=== PATIENT | male | born 1965 | race Caucasian/White ===

== ENCOUNTER 2023-08-19 13:33 | Outpatient (AMB) | payer OTHER, SELFPAY ==
--- NOTE | 2023-08-19 13:35 | MHC.PC.OV ---
Vital Signs 08/19/23 13:38 Height 5 ft 7.72 in Weight 280 lb BMI 42.9 BP 140/90 H Blood Pressure Location Lt brachial Position Sitting Pulse 77 Pulse Source Pulse Oximeter Pulse Oximetry (%) 99 Oxygen Delivery Method Room Air Intake Visit Reasons: New patient-req physical/discuss cardio referral Intake Note: Patient is a new patient here to establish care for HTN and Cardiolody referral. Pt moved from [place] to [facility] back in April and have not seen a PCP in more than 4-5 years. Medical records have been requested. Insert Operator Required: No Accompanied by: Spouse Allergies No Known Allergies Allergy (Verified 08/19/23 13:55) Medication List - Last Reviewed 08/19/23 by ELLIE Rothman furosemide 40 mg PO DAILY lisinopril 20 mg PO DAILY 90 days metoprolol succinate ER 25 mg PO DAILY 90 days rosuvastatin (Crestor) 20 mg PO DAILY sildenafil 100 mg PO DAILY 7 days Tobacco use date assessed: 08/19/23 Dental Screening Dental Screen Date: 08/19/23 Did you have a dental visit in the last 12 months?: No Did you have a dental problem in the last 6 months where you did not have access to dental care?: No Was dental information given to patient?: Yes HPI New patient-req physical/discuss cardio referral HPI Details Patient is a 57-year-old male here today for new patient visit. Patient has a past medical history significant for obesity, Congestive heart failure, hypertension, history of alcohol use disorder(in remission). Recently moved back from [place] and was seeing a professor of art while down there. No records in documents as of yet. He did have a hospitalization in 2020 ([place] which was found to have pneumonia, COVID and found to be in heart failure. At that time he reports a dual pacemaker and D fib was placed while in [place]. He would like to reestablish care with Cardiology here in [place]. Continues on cardiac meds like metoprolol , furosemide and lisinopril and has been doing well from cardiovascular standpoint. .. He also does report having history elevated cholesterol and impaired fasting blood sugars. Will recheck labs and treat accordingly. Vaccines: Need PCV and flu vaccine today, reports he a has gotten tetanus, he is considering the shingles vaccine Concern--> has been trouble with getting an erection. He would like to try medication PFSH Family History (Updated 08/19/23 @ 14:05 by Tushar Soria PA-C) Mother CHF (congestive heart failure) Father CHF (congestive heart failure) Sister HTN (hypertension) Social History Housing: House Alcohol intake: former Year quit: 2004 Patient Tobacco Use Status: Never used Tobacco Tobacco use type: Smokeless Tobacco (never) e-Cigarette/Vaping Use: Never Used Substance Use Type: Crack/Cocaine and Marijuana Substance Use Type Other:: quit more than 16 years ago service: No Current occupational status: employed Current occupation: [employer] Current occupational exposures/hazards: No Cognitive needs: No Hearing needs: No Vision needs: No Questionnaire PHQ-9 Over the last 2 weeks, how often have you been bothered by any of the following problems? 1. Little interest or pleasure in doing things: not at all 2. Feeling down, depressed, or hopeless: not at all 3. Trouble falling or staying asleep, or sleeping too much: not at all 4. Feeling tired or having little energy: not at all 5. Poor appetite or overeating: not at all 6. Feeling bad about yourself - or that you are a failure or have let yourself or your family down: not at all 7. Trouble concentrating on things, such as reading the newspaper or watching television: not at all 8. Moving or speaking so slowly that other people could have noticed. Or the opposite - being so fidgety or restless that you have been moving around a lot more than usual: not at all 9. Thoughts that you would be better off or of hurting yourself in some way: not at all Total score: 0 Depression Screening Interpretation: Negative Depression Screening Done: Yes [id number] - PHQ-9 Billing: Yes Source: Developed by Drs. Sheldon Asher, Tayla Rosado, Presley Gallagher and colleagues, with an educational sawyer from [employer] Thrive Questionnaire Date Thrive assessed: 08/19/23 I am a: Patient What is your living situation today?: I have a steady place to live Within the past 12 months, did the food you bought not last and you didn't have the money to get more?: Never true Within the past 12 months, did you worry whether your food would run out before you got money to buy more?: Never true Do you have trouble paying for medicines?: No Do you have trouble getting transportation to medical appointments?: No Do you have trouble paying your heating and electricity bill?: No Do you have trouble taking care of your child, family member or friend?: No Do you have trouble with day-to-day activities such as bathing, preparing meals, shopping, managing finances, etc.?: No Are you currently unemployed and looking for a job?: No Are you interested in more education?: No Please select the resources that you would like help with: None Currently or been in a relationship where the following occur: no concerns reported AUDIT C Alcohol Use Questionnaire (AUDIT-C) 1. How often do you have a drink containing alcohol?: Never 3. How often do you have six or more drinks on one occasion?: Never Total Score: 0 ALYSSA-7 AMB Questionnaire ALYSSA-7 Date ALYSSA - 7 assessed: 08/19/23 Feeling nervous, anxious, or on edge: 0 = Not at all Not being able to stop or control worryin = Not at all Worrying too much about different things: 0 = Not at all Trouble relaxin = Not at all Being so restless that it is hard to sit still: 0 = Not at all Becoming easily annoyed or irritable: 0 = Not at all Feeling afraid as if something awful might happen: 0 = Not at all Total ALYSSA-7 score (0-4 normal; 5-9 mild; 10-14 moderate; 15-21 severe): 0 Source: Developed by Drs. Sheldon Asher, Tayla Rosado, Presley Gallagher and colleagues, with an educational sawyer from [employer] ALYSSA-7 Assessment Billing ALYSSA-7 Assessment Tool: ALYSSA-7 Assessment 01031 Review of Systems Const Denies headache(s) Eyes Denies loss of vision ENT Denies vertigo, Denies dizziness, Denies headache(s) and Denies sore throat Card Denies chest pain, Denies leg edema and Denies lightheadedness Resp Denies cough, Denies hemoptysis and Denies wheezing GI Denies abdominal pain, Denies melena, Denies constipation, Denies diarrhea and Denies vomiting Denies dysuria, Denies urinary frequency and Denies urinary urgency Musc Denies arthralgias, Denies joint swelling, Denies numbness and Denies tingling Neuro Denies Abnormal speech present, Denies behavioral changes, Denies vertigo, Denies dizziness, Denies headache(s), Denies loss of vision, Denies memory loss, Denies numbness and Denies tingling Psych Denies anxiety, Denies behavioral changes, Denies depression, Denies memory loss and Denies panic attacks Eyal/Lymph Denies easy bleeding and Denies easy bruising Aller/Immun Denies wheezing Physical exam (Primary Care) Vital Signs: Last Vital Signs Pulse 77 08/19/23 13:38 BP 140/90 H 08/19/23 13:38 Pulse Ox 99 08/19/23 13:38 Oxygen Delivery Method Room Air 08/19/23 13:38 BMI result Body Mass Index 42.9 BMI Assessment/Plan discussion: High Tobacco/Smoking Status: Tobacco use Status Tobacco use date assessed 08/19/23 08/19/23 13:45 Patient Tobacco Use Status Never used Tobacco 08/19/23 14:05 Tobacco use type Smokeless Tobacco (never) 08/19/23 15:41 e-Cigarette/Vaping Use Never Used 08/19/23 14:05 PHQ-9: PHQ-9 Score PHQ-9: Total score 0 08/19/23 15:35 Depression Screening Interpretation: Negative Thrive Assessment: Date of Thrive Assessment Date Thrive assessed 08/19/23 08/19/23 13:45 Currently or been in a relationship where the following occur: no concerns reported Const Other: Morbidly obese General: no acute distress, alert and awake Nutritional Appearance: well nourished Orientation/consciousness: oriented to person, oriented to place and oriented to time HENMT Ears: TM's normal bilaterally General nose exam: Normal nasal mucous membranes and turbinates present Eyes Conjunctivae: conjunctivae normal Sclerae: sclerae normal Pupils: Equal, round and reactive pupils present Neck Neck: Yes no lymphadenopathy and Yes no JVD Thyroid: Thyroid normal Carotids: no bruits Resp Effort & Inspection: normal respiratory effort and not tachypneic Auscultation: no crackles, no rales, no rhonchi and no wheezes Cardio Rate: regular rate Rhythm: regular rhythm Heart sounds: no murmurs and normal S1 and S2 GI Palpation (GI): Soft to palpation, nontender, no hepatomegaly and no splenomegaly Auscultation: normal bowel sounds Skin General skin exam: no rashes or lesions noted and dry skin Neuro General: oriented to person, oriented to place and oriented to time Cranial nerves: Yes Equal, round and reactive pupils present Speech: No Abnormal speech present Gait exam (Neuro): Normal gait present Motor exam (neuro): no tremor noted Extrem Right upper extremity: full ROM Left upper extremity: full ROM Right lower extremity: full ROM; no edema Left lower extremity: full ROM; no edema Psych Mental Status: mental status grossly normal Speech and movement: Normal speech and movement present Affect: normal affect Attitude: cooperative Thought process: Normal thought process present Office Procedures Flu Questionnaire Does the patient have a severe egg allergy?: No Does the patient have severe life threatening allergies?: No Does the patient have a fever or illness today?: No Has the patient ever had Guillain-[place] Syndrome?: No Has the patient ever had any past reaction to a flu shot?: No Immunizations flu vacc [id number] 6mos up(PF) 60 mcg(15 mcgx4)/0.5 mL IM syringe Performing Provider: Tushar Soria PA-C Performing Location: [facility] [place] [facility] Administered by: ELLIE Rothman on 08/19/23 14:49 Dose Route Admin Location Dispensed Lot Number Expiration Date [employer] Member 0.5 mL IM Right Deltoid 0.5 mL [id number] 03/29/24 52919-975-22 [employer] VIS Given Date VIS Provided VIS Publication Date 08/19/23 Single Vaccine 21 Eligibility Eligibility Date Funding Source Not VFC Eligible 08/19/23 Private pneumoc 20-desi conj-dip cr(PF) 0.5 mL IM syringe Performing Provider: Tushar Soria PA-C Performing Location: [facility] [place] [facility] Administered by: ELLIE Rothman on 08/19/23 14:49 Dose Route Admin Location Dispensed Lot Number Expiration Date [employer] Member 0.5 mL IM Left Deltoid 0.5 mL [id number] 06/29/24 2938-4159-75 [employer] VIS Given Date VIS Provided VIS Publication Date 08/19/23 Single Vaccine 21 Eligibility Eligibility Date Funding Source Not VFC Eligible 08/19/23 Private Assessment and Plan Assessment & Plan (1) CHF (congestive heart failure), NYHA class III: Code(s): I50.9 - Heart failure, unspecified Qualifiers: Congestive heart failure chronicity: chronic Congestive heart failure type: diastolic Qualified Code(s): I50.32 - Chronic diastolic (congestive) heart failure Plan: Was followed by professor of art while living in [place]. Would like to reestablish care with Cardiology here in [place].. Seems to be euvolemic on physical exam today. He has a maintenance dose Lasix 20 mg daily. Did continue him on this dose at this time and refer to cardiology for further evaluation. Of note does have AD fib pacemaker in place. (2) HTN (hypertension): Code(s): I10 - Essential (primary) hypertension Qualifiers: Hypertension type: primary hypertension Qualified Code(s): I10 - Essential (primary) hypertension Plan: Blood pressure today slightly elevated. He reports he has been out of medication for little while due to [place]. Will restart his lisinopril at a higher dose 20 mg. Advised to start monitoring his blood pressure and weights at home. Goal blood pressure to be below 140/90 (3) Obese: Code(s): E66.9 - Obesity, unspecified Qualifiers: Body mass index: BMI 40.0-44.9 Obesity classification: adult class 3 (BMI >= 40) Obesity type: due to excess calories Serious obesity comorbidity presence: with serious comorbidity Qualified Code(s): E66.01 - Morbid (severe) obesity due to excess calories; Z68.41 - Body mass index [BMI] 40.0-44.9, adult Plan: Patient does understand his BMI is well over 40 will try to work on being more physically active and adapting to better eating habits to reduce his weight. (4) Cardiac defibrillator in place: Code(s): Z95.810 - Presence of automatic (implantable) cardiac defibrillator Plan: As above. He denies any discharges since having his implantable defibrillator. (5) Impaired glucose metabolism: Code(s): R73.09 - Other abnormal glucose Plan: Patient does report history of impaired glucose metabolism. Will check an A1c to evaluate for diabetes. (6) S/P placement of cardiac pacemaker: Code(s): Z95.0 - Presence of cardiac pacemaker Plan: As above Orders: Orders Comprehensive [place]. Panel Fast 08/19/23 I50.32 - Chronic diastolic (congestive) heart failure Hemoglobin A1c 08/19/23 R73.09 - Other abnormal glucose Influenza [id number] Immunization 08/19/23 Z23 - Encounter for immunization Microalbumin, Random (w Creat) 08/19/23 I10 - Essential (primary) hypertension Lipid Panel 08/19/23 I50.32 - Chronic diastolic (congestive) heart failure Prostate Specific Antigen Scr 08/19/23 I50.32 - Chronic diastolic (congestive) heart failure, Z12.5 - Encounter for screening for malignant neoplasm of prostate Complete Blood Count no Diff 08/19/23 I50.32 - Chronic diastolic (congestive) heart failure Pneumococcal 20 Immunization 08/19/23 I50.32 - Chronic diastolic (congestive) heart failure, Z23 - Encounter for immunization Referrals Cardiology Referral I50.9 - Heart failure, unspecified, Z95.810 - Presence of automatic (implantable) cardiac defibrillator Medications: New metoprolol succinate ER 25 mg PO DAILY 90 days 90 tabs 1RF I50.32 - Chronic diastolic (congestive) heart failure lisinopril 20 mg PO DAILY 90 days 90 tabs 1RF I10 - Essential (primary) hypertension furosemide 20 mg PO DAILY 90 days 90 tabs 1RF I50.32 - Chronic diastolic (congestive) heart failure sildenafil 100 mg PO DAILY 7 days 7 tabs 0RF N52.9 - Male erectile dysfunction, unspecified Coding Level of Care Code New Pt Level 4 (56267) Diagnoses Chronic diastolic congestive heart failure, NYHA class 3 I50.32 Congestive heart failure chronicity: chronic Congestive heart failure type: diastolic Primary hypertension I10 Hypertension type: primary hypertension Class 3 severe obesity due to excess calories with serious comorbidity and body mass index (BMI) of 40.0 to 44.9 in adult E66.01; Z68.41 Body mass index: BMI 40.0-44.9 Obesity classification: adult class 3 (BMI >= 40) Obesity type: due to excess calories Serious obesity comorbidity presence: with serious comorbidity Cardiac defibrillator in place Z95.810 Impaired glucose metabolism R73.09 S/P placement of cardiac pacemaker Z95.0 Additional Codes ALYSSA-7 Assessment Billing - ALYSSA-7 Assessment Tool: ALYSSA-7 Assessment [id number] ([id number])
[2023-08-19 13:38] VITALS: BP 140/90; PULSE 77; O2SAT 99; BMI 42.9
== END 2023-08-19 14:38 | disposition home or self-care (01) ==
PROVIDERS: PCP Physician Assistant; Visit Provider Physician Assistant
DX: Z23 Encounter for immunization (principal)
CPT/HCPCS: 90471; 90472; 90677; 90686; 99204

== ENCOUNTER 2023-08-23 10:56 | Outpatient (REF) | payer OTHER, SELFPAY ==
[2023-08-23 11:37] LABS: Hematocrit 49.7 % (42.0-52.0); Hemoglobin 16.3 g/dl (14.0-18.0); Mean Corpuscular HGB Conc 32.8 g/dl (31.0-36.0); Mean Corpuscular Hemoglobin 29.3 pg (27.0-33.0); Mean Corpuscular Volume 89.4 fL (80.0-98.0); Mean Platelet Volume 10.9 fL (9.4-12.4); Platelet Count 255 X10*3/uL (160-400); Red Blood Count 5.56 X10*6/uL (4.60-5.80); Red Cell Distribution Width 13.4 % (11.0-16.0); White Blood Count 8.3 X10*3/uL (4.8-10.8)
[2023-08-23 12:06] LABS: Creatinine Urine 158.64 mg/dL; Microalbum/Creatinine Ratio Ur 6.3 ug/mg cr (<30)
[2023-08-23 12:08] LABS: Alanine Aminotransferase 28 U/L (0-40); Albumin Level 4.1 g/dL (3.5-5.0); Alkaline Phosphatase 67 U/L (39-117); Anion Gap 11 (12-20); Aspartate Amino Transferase 23 U/L (5-37); Bilirubin Total 0.4 mg/dL (0.0-1.0); Blood Urea Nitrogen 24 mg/dL (9-16); Carbon Dioxide 24 mmol/L (22-29); Chloride 110 mmol/L (96-108); Cholesterol 180 mg/dL (<200); Estimated Glomerular Filt Rate > 60; Glucose Fasting 101 mg/dL (60-99); HDL Cholesterol 41 mg/dL (>40); LDL Cholesterol Calculated 114 mg/dL (<100); Potassium 4.4 mmol/L (3.3-5.1); Sodium 141 mmol/L (135-145); Total Protein 7.1 g/dL (6.5-8.0); Triglycerides 128 mg/dL (<150)
[2023-08-23 13:38] LABS: Estimated Average Glucose 120 mg/dL; Hemoglobin A1c % 5.8 % (<6.0)
== END 2023-08-23 10:57 | disposition home or self-care (01) ==
LOC: HO.LAB 10:56
PROVIDERS: PCP Physician Assistant; Visit Provider Physician Assistant
DX: Z12.5 Encounter for screening for malignant neoplasm of prostate (principal); I11.0 Hypertensive heart disease with heart failure; I50.32 Chronic diastolic (congestive) heart failure; R73.09 Other abnormal glucose
CPT/HCPCS: 36415; 80053; 80061; 82043; 82570; 83036; 84153; 85027

== ENCOUNTER 2023-11-15 09:57 | Outpatient (AMB) | payer BC, SELFPAY ==
[2023-11-15 09:58] VITALS: BP 124/80; PULSE 76; BMI 42.3
--- NOTE | 2023-11-15 09:58 | MHC.OFFVIS ---
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 device in place Intake Note: New patient hx heart failure [place] pacer placed in [place] feeling good Supervisor Special Services Required: No Allergies No Known Allergies Allergy (Verified 08/19/23 13:55) Medication List - Last Reconciled 11/15/23 by New Westfall MD furosemide 40 mg PO DAILY lisinopril 20 mg PO DAILY 90 days metoprolol succinate ER 25 mg PO DAILY 90 days rosuvastatin (Crestor) 20 mg PO DAILY 90 days sildenafil 100 mg PO DAILY 7 days HPI HPI Comments History of Present Illness Details Thank you for referring Phillip in cardiology consultation today for management of congestive heart failure. He has a pleasant 58-year-old male who has by history of heart failure with reduced ejection fraction secondary to nonischemic cardiomyopathy, diagnosed in October of 2021. He said he had moved to [place] and had not seen a physician and run out of his medication for about a year and half. He then had COVID and subsequently was admitted with pneumonia. Following that he started noticing symptoms exertional shortness of breath which pretty limiting. At that time he had a workup done and was diagnosed with congestive heart failure related to severe LV systolic dysfunction which was subsequently diagnosed to be nonischemic cardiomyopathy with coronary angiogram showing no significant coronary artery disease. He was then managed medically. Subsequently he had persistent LV systolic dysfunction underwent a dual-chamber defibrillator placement, [place] in February of 2022. Since then he has been on neurohormonal modulation with lisinopril as well as metoprolol and has been treated with furosemide. He said over the last couple years he has been doing well and he has had no recurrent hospitalization related to heart failure. 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 He has NYHA class 1 symptoms. He denies any orthopnea, PND, leg edema, abdominal distension. He has been trying to lose weight. He takes his medications religiously. However he says he has not seen a grit blaster since he is moved up to [place] and for about a year he has not had his defibrillator check. Not sure as to who is performing remote monitoring on him at this point in time. He takes his medications religiously. Does complain of daytime somnolence and nocturnal snoring. Has never had a sleep study done in the past. He denies any exertional chest pain, palpitations, lightheadedness, syncope. [facility] Medical History Nonischemic cardiomyopathy Heart failure with reduced ejection fraction Cardiac defibrillator in place Family History Mother CHF (congestive heart failure) Father CHF (congestive heart failure) Sister HTN (hypertension) Social History Housing: House Alcohol intake: former Year quit: 2004 Patient Tobacco Use Status: Never used Tobacco Tobacco use type: Smokeless Tobacco e-Cigarette/Vaping Use: Never Used Substance Use Type: Crack/Cocaine and Marijuana service: No Current occupational status: employed Current occupation: [employer] Current occupational exposures/hazards: No Cognitive needs: No Hearing needs: No Vision needs: No Review of Systems Const Denies chills, Denies fatigue, Denies fever(s), Denies frequent falls, Denies weakness, Denies weight gain and Denies weight loss ENT Denies dizziness Card Denies chest pain, Denies leg edema, Denies lightheadedness, Denies palpitations, Denies dyspnea, Denies dyspnea on exertion, Denies orthopnea and Denies other (loss of consciousness) Resp Denies cough, Denies dyspnea and Denies dyspnea on exertion GI Denies hematochezia and Denies change in stool character Musc Denies abnormal gait, Denies muscle weakness, Denies numbness, Denies radiating pain into limb and Denies tingling Neuro Denies abnormal gait, Denies dizziness, Denies frequent falls, Denies numbness, Denies tingling and Denies weakness Endo Denies fatigue and Denies palpitations Physical Exam Vital Signs: Last Vital Signs Pulse 76 11/15/23 09:58 BP 124/80 11/15/23 09:58 BMI result Body Mass Index 42.3 Const General: cooperative, comfortable, no acute distress, well developed, alert, awake and Physically active Nutritional Appearance: obese Orientation/consciousness: patient oriented x3 Limitations: no limitations HEENT Head: Yes normocephalic and Yes atraumatic Neck Neck: Yes trachea midline, Yes supple and Yes no JVD Resp Effort & Inspection: normal respiratory effort Auscultation: clear to auscultation bilaterally Cardio Jugular venous distension: no JVD Palpation: abnormal PMI displaced PMI Rate: regular rate Rhythm: regular rhythm Heart sounds: S1 normal heart sound present, S2 normal heart sound present, no click, no gallops, no murmurs and no rubs GI Auscultation: normal bowel sounds Skin General skin exam: no rashes or lesions noted Neuro General: patient oriented x3 and no focal motor deficits Extrem General: Yes no clubbing, cyanosis or edema Office Procedures Cardiac Device Check Cardiac Device Check Details: Dual-chamber [place] defibrillator in place. Programmed in DDD at 60 beats per minute. Atrial pacing 9.4% time. Few episodes of high ventricular rate noted consistent with either sinus tachycardia or SVT. Atrial pacing thresholds adequate and in our capture mode. RV pacing thresholds adequate and reprogrammed to enhance battery life. Right atrial sensing is excellent. RV sensing is on a low end of normal. Pacing and shock lead impedance is stable. Battery life is excellent. Heart failure markers are stable [id number] Cardiac Device Check, dual lead implantable defibrillator Procedure code (CPT) selection complete EKG Details: EKG shows normal sinus rhythm with LVH with leftward axis 08232-[id number], Complete Assessment & Plan Assessment & Plan (1) Heart failure with reduced ejection fraction: Comment: Diagnose October 2021 Code(s): I50.20 - Unspecified systolic (congestive) heart failure Plan: Patient with prior history of heart failure with reduced ejection fraction secondary to nonischemic cardiomyopathy with last recorded echocardiogram from January of 2022 still showing severe LV systolic dysfunction with dilated LV. He has had no repeat study recently. He is currently on neurohormonal modulation with lisinopril metoprolol and is currently NYHA class 1 symptoms on current diuretic dose. Heart failure has remained stable. Will repeat echocardiogram to assess LV systolic function and size. If he does have persistent LV systolic dysfunction will switch his neurohormonal modulation to Entresto therapy and maximize it and eventually also add Aldactone to his regimen for neurohormonal modulation. This was discussed with him. He should also get a workup for sleep apnea is at risk given his longstanding history of hypertension with cardiomyopathy and daytime somnolence and snoring. This will also changes therapeutic options. Clinically appears to be euvolemic and well compensated and probably does not require this dosing of furosemide. Will follow-up with blood work today and then further guide therapy with diuretics as need be. Heart failure management was discussed. Daily weight monitoring avoidance of salt loading was discussed. He does work heartbeat I encouraged him to participate in regular physical activity and also consider aggressively weight loss program. He said he is motivated about the same. (2) Cardiac defibrillator in place: Comment: [place] dual-chamber ICD in place, February 2022 Code(s): Z95.810 - Presence of automatic (implantable) cardiac defibrillator Plan: Dual-chamber [place] ICD in place for primary prevention. The device is working well. He is having episodes of SVT which appeared more likely related to sinus tachycardia. No change in therapy at this point in time. Will continue monitor remotely and will obtain remote monitoring from his prior grit blaster's office. Will follow up in the clinic in 3 months time, sooner p.r.n.. Thank you for allowing me to partake in his care Orders: Orders B Type Natriuretic Peptide Today I50.32 - Chronic diastolic (congestive) heart failure CA echo transthoracic complete Today I50.32 - Chronic diastolic (congestive) heart failure Basic Metabolic Panel Today I50.32 - Chronic diastolic (congestive) heart failure RT home sleep study Today I50.9 - Heart failure, unspecified, R40.0 - Somnolence Coding Level of Care Code New Pt Level 4 (35342) Diagnoses Heart failure with reduced ejection fraction I50.[address] Z95.810 CPT Codes Cardiac Device Check - Cardiac Device 5: [id number] Cardiac Device Check, dual lead implantable defibrillator ([id number]) EKG - CPT: 33050-Cmzyapconmtyifald, Complete ([id number])
== END 2023-11-15 10:34 | disposition home or self-care (01) ==
PROVIDERS: PCP Physician Assistant; Visit Provider Internal Medicine Cardiovascular Disease
DX: I50.20 Unspecified systolic (congestive) heart failure (principal); Z95.810 Presence of automatic (implantable) cardiac defibrillator
CPT/HCPCS: 93283; 99204

== ENCOUNTER 2023-11-15 09:57 | Outpatient (REF) | payer BC, SELFPAY ==
[2023-11-15 12:17] LABS: Anion Gap 11 (12-20); Blood Urea Nitrogen 21 mg/dL (9-16); Calcium 9.6 mg/dL (8.4-10.2); Carbon Dioxide 22 mmol/L (22-29); Chloride 108 mmol/L (96-108); Estimated Glomerular Filt Rate > 60; Glucose Random 89 mg/dL (60-115); Potassium 4.2 mmol/L (3.3-5.1); Sodium 137 mmol/L (135-145)
[2023-11-15 12:24] LABS: B Type Natriuretic Peptide 49 pg/mL (<100)
== END 2023-11-15 09:58 | disposition home or self-care (01) ==
LOC: HO.LAB 09:57
PROVIDERS: PCP Physician Assistant; Visit Provider Internal Medicine Cardiovascular Disease
DX: I50.32 Chronic diastolic (congestive) heart failure (principal); Z95.810 Presence of automatic (implantable) cardiac defibrillator
CPT/HCPCS: 36415; 80048; 83880; 93005

== ENCOUNTER → 2024-03-18 14:47 | Outpatient (REF) | payer BC, SELFPAY ==
--- NOTE | 2024-03-18 14:51 | CA_ITS ---
Transthoracic Echocardiogram Patient (Last, First, Middle): Favian Carvajal), Gender: Male Date of : 1965 Age: 58 Procedure Date: 03/18/2024 Procedure Type: Transthoracic Echocardiogram Location: OP Height: 175.26 cm Weight: 122.47 kg BSA: 2.35 m2 Heart Rate: 71 bpm BP: 132 / 74 mmHg Mine Surveyor: SB Referring MD: New Westfall MD [employer] Laborer: New Westfall MD Symptoms: I50.32 - Chronic diastolic (congestive) heart failure Study Quality: Adequate w contrast ECG Rhythm: Sinus Conclusions: - 1. Moderately dilated left ventricle with preserved LV ejection fraction of 55-60% 2. Normal cardiac valvular Dopplers 3. Normal RV systolic pressure 4. No gross pericardial effusion Findings Procedure Information Contrast agent, definity, is being given per protocol without apparent complications. Left Ventricle Moderately increased left ventricular cavity size. There is normal left ventricular wall thickness. The left ventricular systolic function is normal. The visually estimated ejection fraction is between 55-60%. Spectral Doppler is indicative of a normal filling pattern. Right Ventricle The right ventricle was not well visualized. There is a pacemaker wire seen in the right ventricle. Atria The left atrium is normal in size. Interatrial shunt cannot be excluded. The right atrium is normal in size. A pacemaker wire is identified in the right atrium. Aortic Valve The aortic valve was not well visualized. There is no aortic valve stenosis. There is no aortic valve regurgitation. Mitral Valve There is mild anterior and posterior mitral leaflet thickening. There is trace mitral valve regurgitation. There is no mitral valve stenosis. Pulmonic Valve The pulmonic valve was not well visualized. Tricuspid Valve Likely normal tricuspid valve structure and function. There is mild tricuspid valve regurgitation. The right ventricular systolic pressure is normal. The right ventricular systolic pressure is 28 mmHg. Normal right atrial pressure. There is no evidence of pulmonary hypertension. Great Vessels The pulmonary artery was not well visualized. There is no dilatation of the ascending aorta measuring 3.30 cm. Venous The inferior vena cava is normal in size and collapses greater than 50% with inspiration. Pericardium/Pleural There is no evidence of pericardial effusion. Prior Study Comparison No prior study available for comparison. Measurements 2D Linear Measurements IVSd: 0.92 0.6-0.9/0.6-1.0 cm LVIDd: 6.21 3.9-5.3/4.2-5.9 cm LVIDd Index: 2.64 2.4-3.2/2.2-3.1 cm/m2 LVIDs: 4.94 2.0-3.6 cm LVPWd: 0.76 0.7-1.1 cm LA Diam: 4.80 2.7-3.8/3.0-4.0 cm LAIDs Index: 2.04 1.5-2.3 cm/m2 LV Mass: 260.98 67-162/88-224 g LV Mass Index: 111.05 43-95/49-115 g/m2 LVOT Diam: 2.30 3.0+(-)1.3 cm 2D Systolic Function EF 4C: 52.90 >55% EF 2C: 57.30 >55% EF BiP: 56.40 >55% Mitral Valve MV Pk E: 0.60 MV PK A: 0.57 MV Decel Time: 206.00 E/A: 1.10 E'Lateral: 11.40 E'Medial: 5.44 E/E' Med: 11.00 E/E' Lat: 5.30 PHT: 60.00 MVA PHT: 3.67 Decel Bureau: 2.91 Aortic Valve AoV Pk Zen: 1.30 AoV Pk Grad: 7.00 JEANETH: 2.53 LVOT LVOT Pk Zen: 0.80 LVOT Mn Zen: 0.61 LVOT VTI: 0.19 LVOT Pk Grad: 3.00 LVOT Mn Grad: 2.00 LVOT Diam: 2.30 LVOT Area: 4.15 Diastolic Function MV Pk E: 0.60 MV Pk A: 0.57 E/A: 1.10 E'Medial: 5.44 E/E' Med: 11.00 E' Laterial: 11.40 E/E' Lat: 5.30 Right Ventricle TAPSE (mm): 20.30 TVS' Zen: 17.40 Tricuspid Valve TR Pk Zen: 2.52 TR Pk Grad: 25.00 RA Press: 3.00 RVSP: 28.00 Great Vessels Aorta Sinus of Valsalva: 3.10 2.0-3.5 cm Ao Asc: 3.30 2.1-3.4 cm Ao Arch: 2.90 Pulmonary Veins Pulm Vein S/D 0.90 Pulmonary Valve PV Pk Zen: 1.04 Peak PV Grad: 4.00 Updated in Other Vendor System with Status of Final New Westfall MD electronically signed on 03/18/2024 4:13:15 PM with status of Final
== END ==
LOC: HO.CARD 14:47
PROVIDERS: PCP Physician Assistant; Visit Provider Internal Medicine Cardiovascular Disease
DX: I50.32 Chronic diastolic (congestive) heart failure (principal); R40.0 Somnolence
CPT/HCPCS: 93306; Q9957

== ENCOUNTER → 2024-03-18 14:51 | Outpatient (BNV) | payer BC, SELFPAY | PROVIDERS: PCP Physician Assistant; Visit Provider Internal Medicine Cardiovascular Disease | DX: I50.32 Chronic diastolic (congestive) heart failure (principal); I36.1 Nonrheumatic tricuspid (valve) insufficiency | CPT/HCPCS: 93306 ==

== ENCOUNTER 2024-04-01 08:43 | Outpatient (AMB) | payer BC, SELFPAY ==
[2024-04-01 08:45] VITALS: BP 128/66; PULSE 67; BMI 41.9
--- NOTE | 2024-04-01 08:45 | A.OFFVIS_ITS ---
Vital Signs 04/01/24 08:45 Height 5 ft 7.7 in Weight 273 lb 5.971 oz BMI 41.9 BP 128/66 Blood Pressure Location Lt brachial Position Sitting Pulse 67 Intake Visit Reasons: 3 month follow-up after echo and sleep study Intake Note: 3mo f/u echo and sleep study. Pt feeling good. Cilnical Scientist Required: No Accompanied by: Self / Same As Patient Allergies No Known Allergies Allergy (Verified 08/19/23 13:55) Medication List - Last Reconciled 04/01/24 by New Westfall MD furosemide 40 mg (2 x 20 mg) PO DAILY lisinopril 20 mg PO DAILY 90 days metoprolol succinate ER 25 mg PO DAILY 90 days rosuvastatin (Crestor) 20 mg PO DAILY 90 days sildenafil 100 mg PO DAILY 7 days HPI Comments Details: Phillip comes for follow-up. He denies any new cardiac symptoms. Echocardiogram in fact shows improved LV ejection fraction to 55-60% but still moderately dilated left ventricle. He continues to have no symptoms of heart failure. 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 Denies any orthopnea, PND, leg edema or signs of volume overload. No palpitations, lightheadedness, syncope, ICD discharge. Denies any clear prolonged irregular heartbeat. Takes all his medications regularly. Recent sleep study showed severe sleep apnea and was recommended CPAP therapy. [facility] Medical History Nonischemic cardiomyopathy Heart failure with reduced ejection fraction Cardiac defibrillator in place Family History Mother CHF (congestive heart failure) Father CHF (congestive heart failure) Sister HTN (hypertension) Social History Housing: House Alcohol intake: former Year quit: 2004 Patient Tobacco Use Status: Never used Tobacco Tobacco use type: Smokeless Tobacco e-Cigarette/Vaping Use: Never Used Substance Use Type: Crack/Cocaine and Marijuana service: No Current occupational status: employed Current occupation: [employer] Current occupational exposures/hazards: No Cognitive needs: No Hearing needs: No Vision needs: No Review of Systems Const Denies chills, Denies fatigue, Denies fever(s), Denies weight gain and Denies weight loss Card Denies chest pain, Denies leg edema, Denies lightheadedness, Denies palpitations, Denies dyspnea on exertion and Denies orthopnea Resp Denies cough and Denies dyspnea on exertion GI Reports melena, Denies hematochezia and Denies change in stool character Musc Denies muscle weakness and Denies radiating pain into limb Endo Denies fatigue and Denies palpitations Physical Exam Vital Signs: Last Vital Signs Pulse 67 04/01/24 08:45 BP 128/66 04/01/24 08:45 BMI result Body Mass Index 41.9 Const General: cooperative, comfortable, no acute distress, well developed, alert, awake and Physically active Nutritional Appearance: obese Orientation/consciousness: patient oriented x3 Limitations: no limitations HEENT Head: Yes normocephalic and Yes atraumatic Neck Neck: Yes trachea midline, Yes supple and Yes no JVD Resp Effort & Inspection: normal respiratory effort Auscultation: clear to auscultation bilaterally Cardio Jugular venous distension: no JVD Palpation: abnormal PMI displaced PMI Rate: regular rate Rhythm: regular rhythm Heart sounds: S1 normal heart sound present, S2 normal heart sound present, no click, no gallops, no murmurs and no rubs GI Auscultation: normal bowel sounds Skin General skin exam: no rashes or lesions noted Neuro General: patient oriented x3 and no focal motor deficits Extrem General: Yes no clubbing, cyanosis or edema Office Procedures Cardiac Device Check Cardiac Device Check Details: Dual-chamber [place] ICD in place. Programmed in DDD at 60 beats per minute. Atrial pacing 12% of time. Few episodes of atrial fibrillation noted overall total burden is less than 24 hours. Atrial ventricular pacing thresholds are a dequate. Atrial ventricular sensing is adequate. Pacing and shock lead impedance is stable. Battery life is at about 7 years [id number] Cardiac Device Check, dual lead implantable defibrillator Procedure code (CPT) selection complete Assessment & Plan Assessment & Plan (1) Heart failure with reduced ejection fraction: Comment: Diagnose October 2021 Code(s): I50.20 - Unspecified systolic (congestive) heart failure Category: Medical Plan: Heart failure with reduced ejection fraction with improved LV ejection fraction on current medical therapy. Although he still has dilated LV consistent with underlying persistent cardiomyopathy process. Clinically has remained euvolemic with NYHA class 1 symptoms. Will reduce Lasix to half the dose for 2 weeks. We discussed about management of congestive symptoms. Daily weight monitoring avoidance of salt loading was discussed advised to call me with any new symptoms. In 2 weeks if he has no significant worsening heart failure syndrome will further reduce diuretics and eventually discontinue it and use it as a p.r.n. basis. However he requires to continue to use neurohormonal modulation with metoprolol and lisinopril therapy. I would not change his lisinopril therapy to Entresto therapy his LV systolic function is improved on lisinopril therapy. Discussed about maintaining blood pressure check and maintain activity level as tolerated. (2) Cardiac defibrillator in place: Comment: [place] dual-chamber ICD in place, February 2022 Code(s): Z95.810 - Presence of automatic (implantable) cardiac defibrillator Category: Medical Plan: Dual-chamber ICD in place, working well. Reprogrammed for adequate function. Will follow remotely every month for heart failure and every 3 months for device check. Noted episodes of atrial fibrillation but overall burden is small. Will continue monitor by remote telemetry. (3) Obstructive sleep apnea: Code(s): G47.33 - Obstructive sleep apnea (adult) (pediatric) Category: Medical Plan: Noted to have severe sleep apnea. Will refer him for Pulmonary for further management of this as this will impact his future cardiovascular health. Will follow up in the clinic in 6 months time, sooner p.r.n.. Thank you for allowing me to partake in his care Coding Level of Care Code Est Pt Level 4 (81020) Diagnoses Heart failure with reduced ejection fraction I50.[address] Z95.810 Obstructive sleep apnea G47.33 CPT Codes Cardiac Device Check - Cardiac Device 5: [id number] Cardiac Device Check, dual lead implantable defibrillator ([id number])
== END 2024-04-01 09:12 | disposition home or self-care (01) ==
PROVIDERS: PCP Physician Assistant; Visit Provider Internal Medicine Cardiovascular Disease
DX: I50.20 Unspecified systolic (congestive) heart failure (principal); G47.33 Obstructive sleep apnea (adult) (pediatric); I48.91 Unspecified atrial fibrillation; Z95.810 Presence of automatic (implantable) cardiac defibrillator
CPT/HCPCS: 93283; 99214

== ENCOUNTER → 2024-04-01 08:43 | Outpatient (BNVA) | payer BC, SELFPAY | PROVIDERS: PCP Physician Assistant; Visit Provider Internal Medicine Cardiovascular Disease ==

== ENCOUNTER → 2024-04-24 23:59 | Outpatient (BNV) | payer BC, SELFPAY ==
--- NOTE | 2024-05-04 16:57 | A.OFFVIS_ITS ---
Intake Visit Reasons: Remote ICD check- [facility] Allergies No Known Allergies Allergy (Verified 04/29/24 09:29) [facility] Medical History (Updated 04/29/24 @ 10:10 by Shani Garcia MD) Morbid obesity Nonischemic cardiomyopathy Heart failure with reduced ejection fraction Cardiac defibrillator in place Family History Mother CHF (congestive heart failure) Father CHF (congestive heart failure) Sister HTN (hypertension) Social History Housing: House Alcohol intake: former Year quit: 2004 Patient Tobacco Use Status: Never used Tobacco Tobacco use type: Smokeless Tobacco e-Cigarette/Vaping Use: Never Used Substance Use Type: Crack/Cocaine and Marijuana service: No Current occupational status: employed Current occupation: [employer] Current occupational exposures/hazards: No Cognitive needs: No Hearing needs: No Vision needs: No Office Procedures Cardiac Device Check Cardiac Device Check Details: Remote ICD report generated 04/24/2024. ICD function is adequate. Few episodes of high ventricular rate noted 1 of them being atrial fibrillation was very short duration. Other as SVT. Nonsustained VT can not be ruled out [id number] Cardiac Device Interrogation, pacemaker Procedure code (CPT) selection complete Assessment & Plan Assessment & Plan (1) Cardiac defibrillator in place: Comment: [facility] dual-chamber ICD in place, February 2022 Code(s): Z95.810 - Presence of automatic (implantable) cardiac defibrillator Category: Medical Plan: See above Coding Level of Care Code Procedure Only Diagnoses Cardiac defibrillator in place Z95.810 CPT Codes Cardiac Device Check - Cardiac Device 12: [id number] Cardiac Device Interrogat ion, pacemaker ([id number])
== END ==
PROVIDERS: PCP Physician Assistant; Visit Provider Internal Medicine Cardiovascular Disease
DX: Z45.02 Encounter for adjustment and management of automatic implantable cardiac defibrillator (principal)
CPT/HCPCS: 93295

== ENCOUNTER 2024-04-29 08:54 | Outpatient (AMB) | payer BC, SELFPAY ==
[2024-04-29 09:21] VITALS: BP 122/80; PULSE 73; O2SAT 98; BMI 43.5
--- NOTE | 2024-04-29 09:21 | A.OFFVIS_ITS ---
Vital Signs 04/29/24 09:21 Height 5 ft 7 in Weight 277 lb 12.519 oz BMI 43.5 BP 122/80 Blood Pressure Location Lt brachial Position Sitting Pulse 73 Pulse Oximetry (%) 98 Oxygen Delivery Method Room Air Intake Visit Reasons: anita Intake Note: pt is here for follow up of sleep study, and has never had cpap before. He does snore, daytime fatigue. [employer] Required: No Allergies No Known Allergies Allergy (Verified 04/29/24 09:29) Medication List - Last Reconciled 04/29/24 by Shani Garcia MD furosemide 20 mg PO DAILY lisinopril 20 mg PO DAILY 90 days metoprolol succinate ER 25 mg PO DAILY 90 days rosuvastatin (Crestor) 20 mg PO DAILY 90 days sildenafil 100 mg PO DAILY PRN Do you need a note to return to daycare/school/sports/work: No HPI HPI anita: Details: This 58 years old very pleasant gentleman is being seen for the 1st time in relation to his diagnosis of obstructive sleep apnea. This gentleman was diagnosed to nonischemic cardiomyopathy causing congestive heart failure, back in 2021 when he was in [place]. He has had cardiac workup including coronary angiograms which showed no significant coronary artery disease. Because of significant left ventricular systolic dysfunction, and recurrent atrial fibrillation he was treated with placement of dual-chamber defibrillator( [facility]) in February of 2022. He has been managed for his congestive heart failure with medical therapy and quite successfully and has been feeling better. HE IS WELL AWARE OF THE FACT THAT HE HAS BEEN OVERWEIGHT, FOR THE PAST MANY YEARS, HE DEFINITELY SNORES HEAVY PER HIS GIRLFRIEND, HIS SLEEP IS ONLY 4-5 HOURS PER NIGHT AND WHEN HE WAKES UP IN THE EARLY HOURS FINDS IT HARD TO GO BACK TO SLEEP. HE DOES REMAINS SOMEWHAT TIRED AND SLEEPY DURING THE WHOLE DAY, BUT HE IS ACTIVE WITH PHYSICAL WORK,. AND KEEPS AWAKE IN THE EVENING HE FALLS ASLEEP EARLY SUCH 20:00 OR SO. He did have home-based sleep study on 02/1924, which was grossly abnormal ,c/w severe obstructive sleep apnea, total sleep time AHI 32.6 and supine AHI 54.7 He has been referred for management of his sleep apnea. This gentleman is very pleasant, well read and he knows , sleep apnea, as well as expected treatment with the CPAP. [facility] Medical History (Updated 04/29/24 @ 10:10 by Shani Garcia MD) Morbid obesity Nonischemic cardiomyopathy Heart failure with reduced ejection fraction Cardiac defibrillator in place Family History Mother CHF (congestive heart failure) Father CHF (congestive heart failure) Sister HTN (hypertension) Social History Housing: House Alcohol intake: former Year quit: 2004 Patient Tobacco Use Status: Never used Tobacco Tobacco use type: Smokeless Tobacco e-Cigarette/Vaping Use: Never Used Substance Use Type: Crack/Cocaine and Marijuana service: No Current occupational status: employed Current occupation: [employer] Current occupational exposures/hazards: No Cognitive needs: No Hearing needs: No Vision needs: No Review of Systems Const All systems reviewed & are unremarkable except as noted in HPI and below Eyes Reports no additional complaints ENT Reports no additional complaints Card Denies chest pain, Denies syncope, Reports irregular heart rhythm (History of recurrent atrial fibrillation), Denies leg edema and Reports dyspnea (Mild with physical exertion) Resp Denies cough, Reports dyspnea (Mild with physical exertion), Denies stridor and Denies wheezing GI Reports no additional complaints Reports no additional complaints Musc Reports no additional complaints Skin/Breast Reports system reviewed and no additional complaints, except as documented Neuro Reports no additional complaints and Denies syncope Psych Reports no additional complaints Endo Reports no additional complaints Aller/Immun Denies wheezing Physical Exam Const General: healthy appearing (Except for being overweight), comfortable, no acute distress, alert and awake Orientation/consciousness: patient oriented x3 HEENT Head: Yes normal to inspection General nose exam: No nasal polyps present and No nasal discharge present Face and sinus: Yes sinuses nontender Mouth: oropharynx abnormals (Slightly narrow, Mallampati class 3) Teeth and gingiva: other (Mild retroganthia of the lower jaw.) Throat: Yes posterior oropharynx normal Eyes General: appearance normal, both eyes and all related structures Neck Neck: Yes normal visual inspection, Yes no lymphadenopathy, Yes trachea midline, Yes no JVD and Yes other (Neck circumference 17-1/2 inch) Thyroid: Thyroid normal Chest Chest palpation & inspection: normal inspection of the chest, normal palpation of entire chest wall, no tenderness and Pacemaker present Resp Effort & Inspection: normal respiratory effort Auscultation: clear to auscultation bilaterally, no crackles, no rhonchi and no wheezes Cardio Palpation: normal PMI Rate: regular rate Rhythm: regular rhythm Heart sounds: no gallops and no murmurs Peripheral pulses: Peripheral pulses 2+ throughout GI Palpation (GI): Soft to palpation, nontender, No hepatosplenomegaly present and no masses Auscultation: normal bowel sounds Back/Spine/Pelvis Thoracic/Lumbar Spine: thoracic and lumbar spine normal to inspection Skin General skin exam: no rashes or lesions noted Neuro General: patient oriented x3 and no focal motor deficits Cranial nerves: Yes CN's II-XII intact bilaterally Extrem General: Yes normal to inspection, Yes no clubbing, cyanosis or edema and Yes no calf tenderness Psych Appearance: grossly normal and well kempt Speech and movement: Normal speech and movement present Results Reviewed Results Reviewed: HOME-BASED SLEEP STUDY ON 03/18/24 TOTAL SLEEP TIME AHI 32.6, SUPINE POSITION AHI 54.7 LATERAL POSITION AHI 22 SNORING 17% OF THE SLEEP TIME MILD NOCTURNAL HYPOXEMIA WITH O2 SAT BELOW 88% FOR 9 MINUTE Assessment & Plan Assessment & Plan (1) Morbid obesity: Comment: CURRENT BMI 43.5. HE HAS BEEN OVERWEIGHT FOR MANY YEARS. Code(s): E66.01 - Morbid (severe) obesity due to excess calories Category: Medical Plan: DISCUSSED ABOUT THE RELATIONSHIP OF OBESITY 2 OBSTRUCTIVE SLEEP APNEA. DISCUSSED ABOUT THE MEANS TO LOSE WEIGHT, INCLUDING DIETARY RESTRICTIONS AND EXERCISE. HE MAY BENEFIT BY JOINING WEIGHT MANAGEMENT PROGRAM. (2) Obstructive sleep apnea: Comment: DIAGNOSIS OF ANITA HAS BEEN CONFIRMED AND IT IS RATHER SEVERE, RETROSPECTIVELY IT MAY HAVE CONTRIBUTED TO HIS NONISCHEMIC CARDIOMYOPATHY AND ARRHYTHMIAS. Code(s): G47.33 - Obstructive sleep apnea (adult) (pediatric) Category: Medical Plan: THIS STUDY FINDINGS ARE DISCUSSED WITH HIM. SLEEP APNEA DISORDER, DISCUSSED WITH HIM. IMPORTANCE OF TREATMENT, ESPECIALLY IN THE FACE OF HIS EXISTING CARDIAC HISTORY . DISCUSSED HE UNDERSTANDS VERY WELL. WILL BE STARTED ON CPAP THERAPY WITH A FULLFACE MASK, AUTO PAP MODE AND PRESSURE SETTING 6 TO 20 CM . HE WAS EDUCATED ABOUT THE USE OF CPAP. OTHER MODES OF TREATMENT ALSO DISCUSSED BUT THE BEST FOR HIM IS TO START. ON CPAP AT THIS TIME HE WILL BE FOLLOWED UP CLOSELY FOR COMPLIANCE AND BENEFITS. (3) Nonischemic cardiomyopathy: Comment: DIAGNOSED TO HAVE NONISCHEMIC CARDIOMYOPATHY/CONGESTIVE HEART FAILURE SINCE 2021. CLINICALLY WELL CONTROLLED WITH MEDICAL THERAPY AT THIS TIME. RETROSPECTIVELY THE RELATIONSHIP BETWEEN ON TREATED ANITA AND HIS CARDIAC PROBLEMS , EXPLAINED TO THE PATIENT Code(s): I42.8 - Other cardiomyopathies Category: Medical Plan CONTINUE OPTIMAL CARDIAC TREATMENT Medications: Changed From sildenafil 100 mg PO DAILY 7 days 7 tabs 0RF N52.9 - Male erectile dysfunction, unspecified To sildenafil 100 mg PO DAILY PRN N52.9 - Male erectile dysfunction, unspecified Coding Level of Care Code New Pt Level 3 (35644) Diagnoses Morbid obesity E66.01 Obstructive sleep apnea G47.33 Nonischemic cardiomyopathy I42.8
== END 2024-04-29 09:57 | disposition home or self-care (01) ==
PROVIDERS: PCP Physician Assistant; Visit Provider Internal Medicine
DX: E66.01 Morbid (severe) obesity due to excess calories (principal); G47.33 Obstructive sleep apnea (adult) (pediatric); I42.8 Other cardiomyopathies
CPT/HCPCS: 99203

== ENCOUNTER → 2024-04-29 08:54 | Outpatient (BNVA) | payer BC, SELFPAY | PROVIDERS: PCP Physician Assistant; Visit Provider Internal Medicine ==

== ENCOUNTER 2024-06-03 09:02 | Outpatient (AMB) | payer BC, SELFPAY ==
[2024-06-03 09:15] VITALS: BP 124/70; PULSE 65; O2SAT 97; BMI 43.3
--- NOTE | 2024-06-03 09:15 | MHC.OFFVIS ---
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 Required: No Allergies No Known Allergies Allergy (Verified 06/03/24 09:29) Medication List - Last Reconciled 06/03/24 by Shani Garcia MD furosemide 20 mg PO DAILY lisinopril 20 mg PO DAILY 90 days metoprolol succinate ER 25 mg PO DAILY 90 days rosuvastatin (Crestor) 20 mg PO DAILY 90 days sildenafil 100 mg PO DAILY PRN Do you need a note to return to daycare/school/sports/work: No HPI HPI Obstructive sleep apnea: Details: This 58 years old gentleman with morbid obesity, obstructive sleep apnea, cardiomyopathy and many other comorbidities, Is here for follow-up for his obstructive sleep apnea. Unfortunately he has not been able to get the CPAP device, due to some technical/financial issues. He is here to get some assistance. He has very poor sleep and remains tired and sleepy during the daytime especially on the days when he is not working. [facility] Medical History Morbid obesity Nonischemic cardiomyopathy Heart failure with reduced ejection fraction Cardiac defibrillator in place Family History Mother CHF (congestive heart failure) Father CHF (congestive heart failure) Sister HTN (hypertension) Social History Housing: House Alcohol intake: former Year quit: 2004 Patient Tobacco Use Status: Never used Tobacco Tobacco use type: Smokeless Tobacco e-Cigarette/Vaping Use: Never Used Substance Use Type: Crack/Cocaine and Marijuana service: No Current occupational status: employed Current occupation: [employer] Current occupational exposures/hazards: No Cognitive needs: No Hearing needs: No Vision needs: No Review of Systems Const All systems reviewed & are unremarkable except as noted in HPI and below Eyes Reports no additional complaints ENT Reports no additional complaints Card Denies chest pain, Denies syncope, Reports irregular heart rhythm (History of recurrent atrial fibrillation), Denies leg edema and Reports dyspnea (Mild with physical exertion) Resp Denies cough, Reports dyspnea (Mild with physical exertion), Denies stridor and Denies wheezing GI Reports no additional complaints Reports no additional complaints Musc Reports no additional complaints Skin/Breast Reports system reviewed and no additional complaints, except as documented Neuro Reports no additional complaints and Denies syncope Psych Reports no additional complaints Endo Reports no additional complaints Aller/Immun Denies wheezing Physical Exam Vital Signs: Last Vital Signs Pulse 65 06/03/24 09:15 BP 124/70 06/03/24 09:15 Pulse Ox 97 06/03/24 09:15 Oxygen Delivery Method Room Air 06/03/24 09:15 BMI result Body Mass Index 43.3 Const General: healthy appearing (Except for being overweight), comfortable, no acute distress, alert and awake Orientation/consciousness: patient oriented x3 HEENT Head: Yes normal to inspection General nose exam: No nasal polyps present and No nasal discharge present Face and sinus: Yes sinuses nontender Mouth: oropharynx abnormals (Slightly narrow, Mallampati class 3) Teeth and gingiva: other (Mild retroganthia of the lower jaw.) Throat: Yes posterior oropharynx normal Eyes General: appearance normal, both eyes and all related structures Neck Neck: Yes normal visual inspection, Yes no lymphadenopathy, Yes trachea midline, Yes no JVD and Yes other (Neck circumference 17-1/2 inch) Thyroid: Thyroid normal Chest Chest palpation & inspection: normal inspection of the chest, normal palpation of entire chest wall, no tenderness and Pacemaker present Resp Effort & Inspection: normal respiratory effort Auscultation: clear to auscultation bilaterally, no crackles, no rhonchi and no wheezes Cardio Palpation: normal PMI Rate: regular rate Rhythm: regular rhythm Heart sounds: no gallops and no murmurs Peripheral pulses: Peripheral pulses 2+ throughout GI Palpation (GI): Soft to palpation, nontender, No hepatosplenomegaly present and no masses Auscultation: normal bowel sounds Back/Spine/Pelvis Thoracic/Lumbar Spine: thoracic and lumbar spine normal to inspection Skin General skin exam: no rashes or lesions noted Neuro General: patient oriented x3 and no focal motor deficits Cranial nerves: Yes CN's II-XII intact bilaterally Extrem General: Yes normal to inspection, Yes no clubbing, cyanosis or edema and Yes no calf tenderness Psych Appearance: grossly normal and well kempt Speech and movement: Normal speech and movement present Results Reviewed Results Reviewed: Results of his home-based sleep study are again explained to him Assessment & Plan Assessment & Plan (1) Morbid obesity: Comment: CURRENT BMI 43.3 HE HAS BEEN OVERWEIGHT FOR MANY YEARS. Code(s): E66.01 - Morbid (severe) obesity due to excess calories Category: Medical Plan: Fully aware of this problem and hopes that after he starts using the CPAP he will have more energy to walk, exercise and lose weight. (2) Obstructive sleep apnea: Comment: DIAGNOSIS OF MENDY HAS BEEN CONFIRMED AND IT IS RATHER SEVERE, RETROSPECTIVELY IT MAY HAVE CONTRIBUTED TO HIS NONISCHEMIC CARDIOMYOPATHY AND ARRHYTHMIAS. Code(s): G47.33 - Obstructive sleep apnea (adult) (pediatric) Category: Medical Plan: As he was unable to get a CPAP device from the DME supplier, due to insurance issues, We are giving him a used but relatively new CPAP device from the office . Settings: Auto Pap mode with pressure 6-20 cm, fullface mask. He is advised to go to the DME office where they will give him all the instructions for the using of CPAP device. He understands very well . Will come for follow-up after 4-5 weeks. (3) Nonischemic cardiomyopathy: Comment: DIAGNOSED TO HAVE NONISCHEMIC CARDIOMYOPATHY/CONGESTIVE HEART FAILURE SINCE 2021. CLINICALLY WELL CONTROLLED WITH MEDICAL THERAPY AT THIS TIME. RETROSPECTIVELY THE RELATIONSHIP BETWEEN ON TREATED MENDY AND HIS CARDIAC PROBLEMS , EXPLAINED TO THE PATIENT Code(s): I42.8 - Other cardiomyopathies Category: Medical Plan: Continue follow-up with cardiology service Coding Level of Care Code Est Pt Level 3 (21065) Diagnoses Morbid obesity E66.01 Obstructive sleep apnea G47.33 Nonischemic cardiomyopathy I42.8
== END 2024-06-03 09:31 | disposition home or self-care (01) ==
PROVIDERS: PCP Physician Assistant; Visit Provider Internal Medicine
DX: E66.01 Morbid (severe) obesity due to excess calories (principal); G47.33 Obstructive sleep apnea (adult) (pediatric); I42.8 Other cardiomyopathies
CPT/HCPCS: 99213

== ENCOUNTER → 2024-06-03 09:02 | Outpatient (BNVA) | payer BC, SELFPAY | PROVIDERS: PCP Physician Assistant; Visit Provider Internal Medicine ==

== ENCOUNTER 2024-07-09 13:42 | Outpatient (AMB) | payer BC, SELFPAY ==
--- NOTE | 2024-07-09 13:52 | MHC.PC.OV ---
Vital Signs 07/09/24 14:10 Height 5 ft 7.7 in Weight 288 lb 8 oz BMI 44.3 BP 160/98 H Blood Pressure Location Lt brachial Position Sitting Pulse 67 Pulse Source Pulse Oximeter Pulse Oximetry (%) 97 Oxygen Delivery Method Room Air Intake Visit Reasons: PE Intake Note: Patient is here today for a physical. 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 Accompanied by: Self / Same As Patient Allergies No Known Allergies Allergy (Verified 07/09/24 14:16) Medication List - Last Reconciled 07/09/24 by Tushar Soria PA-C furosemide 20 mg PO DAILY lisinopril 20 mg PO DAILY 90 days metoprolol succinate ER 25 mg PO DAILY 90 days rosuvastatin (Crestor) 20 mg PO DAILY 90 days sildenafil 100 mg PO DAILY PRN Tobacco use date assessed: 07/09/24 Dental Screening Dental Screen Date: 07/09/24 Did you have a dental visit in the last 12 months?: Yes Did you have a dental problem in the last 6 months where you did not have access to dental care?: No Was dental information given to patient?: Patient has dentist HPI PE HPI Details Patient is a 58-year-old male here today for an annual physical. Patient has a past medical history significant for obesity, Congestive heart failure, hypertension, history of alcohol use disorder(in remission). Heart failure with reduced ejection fraction: Has cardiac defibrillator in place. Now followed by [facility]. Has been taking furosemide on as needed basis for lower extremity swelling. Otherwise blood pressures seem to have been stabilize with lisinopril and metoprolol. Today blood pressure elevated in office though patient reports the severity. PLAN: Will supply patient with a paper Rx for blood pressure monitor to do home blood pressure monitoring. .. He also does report having history elevated cholesterol and impaired fasting blood sugars. Will recheck labs and treat accordingly. .. Obstructive sleep apnea: Patient was noted to have severe obstructive sleep apnea, during sleep he has been found to have runs of AFib. Followed by [facility] and has been started on CPAP therapy. Unfortunately he reports he still has been feeling bit tired during the daytime. .. Class 3 obesity: Patient does understand his BMI is over 40 and has had a difficult time losing weight. He has been able to lose weight when physically active and adapting to better eating habits though does work full-time now and can not find the time to be more physically active. He does admit to dietary indiscretion. He is interested in a GLP 1 to help him lose weight. He does have several comorbidities including heart failure and MENDY Vaccines: Up-to-date with pneumonia and flu vaccine today, reports he a has gotten tetanus, he is considering the shingles vaccine Colorectal cancer screening he reports getting colonoscopy age 50 and reports normal, will need colonoscopy at 60 years old. [facility] Medical History Morbid obesity Nonischemic cardiomyopathy Heart failure with reduced ejection fraction Cardiac defibrillator in place Family History Mother CHF (congestive heart failure) Father CHF (congestive heart failure) Sister HTN (hypertension) Social History Housing: House Alcohol intake: former Year quit: 2004 Patient Tobacco Use Status: Never used Tobacco Tobacco use type: Smokeless Tobacco e-Cigarette/Vaping Use: Never Used Substance Use Type: Crack/Cocaine and Marijuana service: No Current occupational status: employed Current occupation: [employer] Current occupational exposures/hazards: No Cognitive needs: No Hearing needs: No Vision needs: No Questionnaire PHQ-9 Over the last 2 weeks, how often have you been bothered by any of the following problems? 1. Little interest or pleasure in doing things: not at all 2. Feeling down, depressed, or hopeless: not at all 3. Trouble falling or staying asleep, or sleeping too much: more than half the days 4. Feeling tired or having little energy: several days 5. Poor appetite or overeating: not at all 6. Feeling bad about yourself - or that you are a failure or have let yourself or your family down: not at all 7. Trouble concentrating on things, such as reading the newspaper or watching television: not at all 8. Moving or speaking so slowly that other people could have noticed. Or the opposite - being so fidgety or restless that you have been moving around a lot more than usual: not at all 9. Thoughts that you would be better off or of hurting yourself in some way: not at all Total score: 3 Depression Screening Interpretation: Positive Depression Screening Follow-up: Existing condition Depression Screening Done: Yes 51610 - PHQ-9 Billing: Yes Source: Developed by Drs. Sheldon Asher, Tayla Rosado, Presley Gallagher and colleagues, with an educational sawyer from [employer]. Thrive Questionnaire Date Thrive assessed: 07/09/24 I am a: Patient What is your living situation today?: I have a steady place to live Within the past 12 months, did the food you bought not last and you didn't have the money to get more?: Never true Within the past 12 months, did you worry whether your food would run out before you got money to buy more?: Never true Do you have trouble paying for medicines?: No Do you have trouble getting transportation to medical appointments?: No Do you have trouble paying your heating and electricity bill?: No Do you have trouble taking care of your child, family member or friend?: No Do you have trouble with day-to-day activities such as bathing, preparing meals, shopping, managing finances, etc.?: No Are you currently unemployed and looking for a job?: No Are you interested in more education?: Yes Please select the resources that you would like help with: None Currently or been in a relationship where the following occur: No concerns reported THRIVE Score: 0 AUDIT C Alcohol Use Questionnaire (AUDIT-C) 1. How often do you have a drink containing alcohol?: Never 3. How often do you have six or more drinks on one occasion?: Never Total Score: 0 ALYSSA-7 AMB Questionnaire ALYSSA-7 Date ALYSSA - 7 assessed: 07/09/24 Feeling nervous, anxious, or on edge: 0 = Not at all Not being able to stop or control worryin = Not at all Worrying too much about different things: 0 = Not at all Trouble relaxin = Not at all Being so restless that it is hard to sit still: 0 = Not at all Becoming easily annoyed or irritable: 0 = Not at all Feeling afraid as if something awful might happen: 0 = Not at all Total ALYSSA-7 score (0-4 normal; 5-9 mild; 10-14 moderate; 15-21 severe): 0 Source: Developed by Tayla Huitron, Presley Gallagher and colleagues, with an educational sawyer from [employer]. ALYSSA-7 Assessment Billing ALYSSA-7 Assessment Tool: ALYSSA-7 Assessment 77502 Physical exam (Primary Care) Vital Signs: Last Vital Signs Pulse 67 07/09/24 14:10 BP 160/98 H 07/09/24 14:10 Pulse Ox 97 07/09/24 14:10 Oxygen Delivery Method Room Air 07/09/24 14:10 BMI result Body Mass Index 44.3 Tobacco/Smoking Status: Tobacco use Status Tobacco use date assessed 07/09/24 07/09/24 13:55 Patient Tobacco Use Status Never used Tobacco 07/09/24 13:55 Tobacco use type Smokeless Tobacco 07/09/24 13:55 e-Cigarette/Vaping Use Never Used 07/09/24 13:55 PHQ-9: PHQ-9 Score PHQ-9: Total score 3 07/09/24 14:09 Depression Screening Interpretation: Positive Depression Screening Follow-up: Existing condition Thrive Assessment: Date of Thrive Assessment Date Thrive assessed 07/09/24 07/09/24 13:55 Currently or been in a relationship where the following occur: No concerns reported Office Procedures Flu Questionnaire Does the patient have a severe egg allergy?: No Does the patient have severe life threatening allergies?: No Does the patient have a fever or illness today?: No Has the patient ever had Guillain-Columbus Syndrome?: No Has the patient ever had any past reaction to a flu shot?: No Immunizations Fluarix Triv [id number] (PF) 45 mcg (15 mcg x 3)/0.5 mL IM syringe Performing Provider: Tushar Soria PA-C [facility] Administered by: ELLIE Rothman on 07/09/24 14:09 Dose Route Admin Location Dispensed Lot Number Expiration Date [facility] Online Banking Specialist 0.5 mL IM Right Deltoid 0.5 mL [id number] 03/29/25 19092-550-64 [employer] VIS Given Date VIS Provided VIS Publication Date 07/09/24 Single Vaccine 21 Eligibility Eligibility Date Funding Source Not [facility] Eligible 07/09/24 Private Coding Level of Care Code Est Pt Prev Care 40-64y(98916) Diagnoses Annual physical exam Z00.00 Left foot pain M79.672 Obstructive sleep apnea G47.33 Heart failure with reduced ejection fraction I50.20 Primary hypertension I10 Hypertension type: primary hypertension Mixed hyperlipidemia E78.2 Hyperlipidemia type: mixed hyperlipidemia Class 3 obesity E66.813 Additional Codes ALYSSA-7 Assessment Billing - ALYSSA-7 Assessment Tool: ALYSSA-7 Assessment 53583 ([id number]) Assessment & Plan Assessment & Plan (1) Annual physical exam: Code(s): Z00.00 - Encounter for general adult medical examination without abnormal findings Category: Medical Plan: As per HPI (2) Left foot pain: Code(s): M79.672 - Pain in left foot Category: Medical Plan: Patient reports stepping into a hole and inverting his ankle a few weeks ago. He has since had some lateral foot pain. He reports taking naproxen and (3) Obstructive sleep apnea: Comment: DIAGNOSIS OF MENDY HAS BEEN CONFIRMED AND IT IS RATHER SEVERE, RETROSPECTIVELY IT MAY HAVE CONTRIBUTED TO HIS NONISCHEMIC CARDIOMYOPATHY AND ARRHYTHMIAS. Code(s): G47.33 - Obstructive sleep apnea (adult) (pediatric) Category: Medical Plan: Patient recently diagnosed with obstructive sleep apnea. Was found to have some months of AFib during sleep. He is now being treated for sleep apnea by CPAP and is sleeping better. Has upcoming appointment with pulmonology. Unfortunately still has daytime somnolence. (4) Heart failure with reduced ejection fraction: Comment: Diagnose October 2021 Code(s): I50.20 - Unspecified systolic (congestive) heart failure Category: Medical Plan: Patient followed by Cardiology. No overt sign of heart failure noted on physical exam. Seems to be well compensated. Only taking furosemide on as needed basis for lower extremity swelling. (5) HTN (hypertension): Code(s): I10 - Essential (primary) hypertension Category: Medical Qualifiers: Hypertension type: primary hypertension Qualified Code(s): I10 - Essential (primary) hypertension Plan: Patient's blood pressure elevated today in office. He reports at other doctor's offices blood pressures though has been stable. He will try to monitor his blood pressure at home to ensure below 140/90 consistently (6) Hyperlipidemia: Code(s): E78.5 - Hyperlipidemia, unspecified Category: Medical Qualifiers: Hyperlipidemia type: mixed hyperlipidemia Qualified Code(s): E78.2 - Mixed hyperlipidemia Plan: Patient continues on statin therapy without side effect. Will recheck fasting lipid panel to ensure LDL below 100 due to patient's cardiovascular risk (7) Class 3 obesity: Code(s): E66.813 - Obesity, class 3 Category: Medical Plan: Patient does understand his BMI is over 40 will work on more physically adapting better eating habits to reduce his weight. As well he was interested in starting a GLP 1 to help him with his appetite control. He does have comorbidities that are related to his obesity such as obstructive sleep apnea, heart failure and hypertension. Orders: Orders Hemoglobin A1c Today R73.09 - Other abnormal glucose Microalbumin, Random (w Creat) Today I10 - Essential (primary) hypertension Prostate Specific Antigen Scr Today I42.8 - Other cardiomyopathies, Z12.5 - Encounter for screening for malignant neoplasm of prostate Influenza [id number] Immunization Today Z23 - Encounter for immunization Lipid Panel Today I42.8 - Other cardiomyopathies Comprehensive [place]. Panel Fast Today I42.8 - Other cardiomyopathies Complete Blood Count no Diff Today I42.8 - Other cardiomyopathies Medications: New blood pressure monitor testing once per day As needed 1 ea 0RF I10 - Essential (primary) hypertension naproxen 500 mg PO BID 15 days 30 tabs 0RF M79.672 - Pain in left foot semaglutide (weight loss) ([place]) administer weeks 1 through 4 of therapy 0.25 mg (0.5 mL) subcut QWEEK 4 weeks 2 mL 0RF E66.813 - Obesity, class 3, I10 - Essential (primary) hypertension, I50.20 - Unspecified systolic (congestive) heart failure Patient Instructions: Goal: Blood pressure to remain below 140/90, LDL to be below 100 Barriers: Adherence to physical activity and healthy eating habits
[2024-07-09 14:10] VITALS: BP 160/98; PULSE 67; O2SAT 97; BMI 44.3
== END 2024-07-09 14:43 | disposition home or self-care (01) ==
PROVIDERS: PCP Physician Assistant; Visit Provider Physician Assistant
DX: Z00.00 Encounter for general adult medical examination without abnormal findings (principal); M79.672 Pain in left foot; G47.33 Obstructive sleep apnea (adult) (pediatric); I50.20 Unspecified systolic (congestive) heart failure; I10 Essential (primary) hypertension; E78.2 Mixed hyperlipidemia; E66.813 Obesity, class 3; Z23 Encounter for immunization

== ENCOUNTER → 2024-07-09 13:42 | Outpatient (BNVA) | payer BC, SELFPAY | PROVIDERS: PCP Physician Assistant; Visit Provider Physician Assistant | DX: Z00.01 Encounter for general adult medical examination with abnormal findings (principal); M79.672 Pain in left foot; G47.33 Obstructive sleep apnea (adult) (pediatric); I11.0 Hypertensive heart disease with heart failure; I50.20 Unspecified systolic (congestive) heart failure; E78.2 Mixed hyperlipidemia; E66.813 Obesity, class 3; Z68.41 Body mass index [BMI] 40.0-44.9, adult; Z79.899 Other long term (current) drug therapy; Z23 Encounter for immunization | CPT/HCPCS: 90471; 90656; 96127 ==

== ENCOUNTER → 2024-10-24 23:59 | Outpatient (BNV) | payer BC, SELFPAY ==
--- NOTE | 2024-10-28 14:03 | MHC.OFFVIS ---
Intake Visit Reasons: Remote ICD check- [place] Allergies No Known Allergies Allergy (Verified 07/09/24 14:16) COUNTS INCLUDE 234 BEDS AT THE [facility] Medical History Morbid obesity Nonischemic cardiomyopathy Heart failure with reduced ejection fraction Cardiac defibrillator in place Family History Mother CHF (congestive heart failure) Father CHF (congestive heart failure) Sister HTN (hypertension) Social History Housing: House Alcohol intake: former Year quit: 2004 Patient Tobacco Use Status: Never used Tobacco Tobacco use type: Smokeless Tobacco e-Cigarette/Vaping Use: Never Used Substance Use Type: Crack/Cocaine and Marijuana service: No Current occupational status: employed Current occupation: [employer] Current occupational exposures/hazards: No Cognitive needs: No Hearing needs: No Vision needs: No Office Procedures Cardiac Device Check Cardiac Device Check Details: Remote ICD report generated 10/24/2024. ICD function is adequate. Multiple high ventricular rate episode noted with one-to-one [facility] association could represent PMT. Nonsustained ventricular tachycardia was also likely [id number]-Uvpyre Cardiac Interrogation, implant defibrillator w/interim Procedure code (CPT) selection complete Assessment & Plan Assessment & Plan (1) Cardiac defibrillator in place: Comment: [place] dual-chamber ICD in place, February 2022 Code(s): Z95.810 - Presence of automatic (implantable) cardiac defibrillator Category: Medical Plan: See above Coding Level of Care Code Procedure Only Diagnoses Cardiac defibrillator in place Z95.810 CPT Codes Cardiac Device Check - Cardiac Device 13: [id number]-[id number] Cardiac Interrogation, implant defibrillator w/interim ([id number])
== END ==
PROVIDERS: PCP Physician Assistant; Visit Provider Internal Medicine Cardiovascular Disease
DX: R00.0 Tachycardia, unspecified (principal); Z95.810 Presence of automatic (implantable) cardiac defibrillator
CPT/HCPCS: 93295

== ENCOUNTER 2024-11-03 15:53 | Outpatient (AMB) | payer BC, SELFPAY ==
[2024-11-03 15:57] VITALS: BP 120/72; PULSE 46; O2SAT 97; BMI 46.8
--- NOTE | 2024-11-03 15:57 | A.OFFVIS_ITS ---
Vital Signs 11/03/24 15:57 Height 5 ft 7.7 in Weight 305 lb 5.443 oz BMI 46.8 BP 120/72 Blood Pressure Location Lt brachial Position Sitting Pulse 46 L Pulse Source Pulse Oximeter Pulse Oximetry (%) 97 Oxygen Delivery Method Room Air Intake Visit Reasons: anita Intake Note: pt is here for anita follow up and using cpap every night, he did state that he has had about 5 times tachycardia is noticed on pacemaker and it corrects itself, most of these episodes occur early am. Marker Machine Required: No Allergies No Known Allergies Allergy (Verified 11/03/24 16:33) Medication List - Last Reconciled 11/03/24 by Shani Garcia MD blood pressure monitor testing once per day As needed lisinopril 20 mg PO DAILY 90 days metoprolol succinate ER 50 mg (2 x 25 mg) PO DAILY 90 days rosuvastatin (Crestor) 20 mg PO DAILY 90 days sildenafil 100 mg PO DAILY PRN Do you need a note to return to daycare/school/sports/work: No HPI HPI anita: Details: This 59 years old very pleasant gentleman is here to discuss about his CPAP usage. Since his last visit in May 2024 he has been using the CPAP device, which he bought on his own, with a fullface mask. He uses every night, at least for 6-7 hours per night, and sleeps well. He is quite happy with the current CPAP machine, he buys his own supplies every 3-4 months. His machine is not capable of transmitting the compliance information but he himself knows that he uses more than. 6 hours every night He has nonischemic cardiomyopathy and has a pacemaker/defibrillator with remote monitoring system. He has had a few runs of tachycardia, but during his sleep and he was totally asymptomatic. 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 He has been kind of lax in controlling his weight and has put on about 30 lb of weight since last visit. [facility] Medical History Morbid obesity Nonischemic cardiomyopathy Heart failure with reduced ejection fraction Cardiac defibrillator in place Family History Mother CHF (congestive heart failure) Father CHF (congestive heart failure) Sister HTN (hypertension) Social History Housing: House Alcohol intake: former Year quit: 2004 Patient Tobacco Use Status: Never used Tobacco Tobacco use type: Smokeless Tobacco e-Cigarette/Vaping Use: Never Used Substance Use Type: Crack/Cocaine and Marijuana service: No Current occupational status: employed Current occupation: [employer] Current occupational exposures/hazards: No Cognitive needs: No Hearing needs: No Vision needs: No Review of Systems Const All systems reviewed & are unremarkable except as noted in HPI and below Eyes Reports no additional complaints ENT Reports no additional complaints Card Denies chest pain, Denies syncope, Reports irregular heart rhythm (History of recurrent atrial fibrillation), Denies leg edema and Reports dyspnea (Mild with physical exertion) Resp Denies cough, Reports dyspnea (Mild with physical exertion), Denies stridor and Denies wheezing GI Reports no additional complaints Reports no additional complaints Musc Reports no additional complaints Skin/Breast Reports system reviewed and no additional complaints, except as documented Neuro Reports no additional complaints and Denies syncope Psych Reports no additional complaints Endo Reports no additional complaints Aller/Immun Denies wheezing Physical Exam Vital Signs: Last Vital Signs Pulse 46 L 11/03/24 15:57 BP 120/72 11/03/24 15:57 Pulse Ox 97 11/03/24 15:57 Oxygen Delivery Method Room Air 11/03/24 15:57 BMI result Body Mass Index 46.8 Const General: healthy appearing (Except for being overweight), comfortable, no acute distress, alert and awake Orientation/consciousness: patient oriented x3 HEENT Head: Yes normal to inspection General nose exam: No nasal polyps present and No nasal discharge present Face and sinus: Yes sinuses nontender Mouth: oropharynx abnormals (Slightly narrow, Mallampati class 3) Teeth and gingiva: other (Mild retroganthia of the lower jaw.) Throat: Yes posterior oropharynx normal Eyes General: appearance normal, both eyes and all related structures Neck Neck: Yes normal visual inspection, Yes no lymphadenopathy, Yes trachea midline, Yes no JVD and Yes other (Neck circumference 17-1/2 inch) Thyroid: Thyroid normal Chest Chest palpation & inspection: normal inspection of the chest, normal palpation of entire chest wall, no tenderness and Pacemaker present Resp Effort & Inspection: normal respiratory effort Auscultation: clear to auscultation bilaterally, no crackles, no rhonchi and no wheezes Cardio Palpation: normal PMI Rate: regular rate Rhythm: regular rhythm Heart sounds: no gallops and no murmurs Peripheral pulses: Peripheral pulses 2+ throughout GI Palpation (GI): Soft to palpation, nontender, No hepatosplenomegaly present and no masses Auscultation: normal bowel sounds Back/Spine/Pelvis Thoracic/Lumbar Spine: thoracic and lumbar spine normal to inspection Skin General skin exam: no rashes or lesions noted Neuro General: patient oriented x3 and no focal motor deficits Cranial nerves: Yes CN's II-XII intact bilaterally Extrem General: Yes normal to inspection, Yes no clubbing, cyanosis or edema and Yes no calf tenderness Psych Appearance: grossly normal and well kempt Speech and movement: Normal speech and movement present Assessment & Plan Assessment & Plan (1) Morbid obesity: Comment: CURRENT BMI 46.8 HE HAS BEEN OVERWEIGHT FOR MANY YEARS. SINCE HIS LAST VISIT HE HAS PUT ON MORE WEIGHT BECAUSE HE WAS NOT VERY CAREFUL WITH HIS DIET AND EXERCISE. Code(s): E66.01 - Morbid (severe) obesity due to excess calories Category: Medical Plan: DISCUSSED WITH HIM ABOUT WEIGHT GAIN AND HE PROMISES THAT HE IS GOING TO WATCH HIS DIET AND ALSO WILL START AN EXERCISE PROGRAM. HIS HAS ALREADY BEEN TALKING TO HIM ABOUT DOING SOMETHING ABOUT THE WEIGHT. (2) Obstructive sleep apnea: Comment: DIAGNOSIS OF ANITA WAS CONFIRMED AND IT IS RATHER SEVERE, HE HAD NO INSURANCE SO WE HAD MADE ARRANGEMENT FOR HIM TO ACQUIRE A USED CPAP DEVICE, WHICH WAS VERY FUNCTIONAL. AND WORKING WELL HE HAS BEEN USING IT REGULARLY EVERY NIGHT AND SLEEPS MORE THAN 6 HOURS PER NIGHT. THE MACHINE BEING OLD DOES NOT TRANSMIT THE DATA FOR RECORDING COMPLIANCE, Code(s): G47.33 - Obstructive sleep apnea (adult) (pediatric) Category: Medical Plan: COMMENDED FOR USING THE CPAP REGULARLY, AND ADVISED HIM TO KEEP ON USING FOR AT LEAST 6-7 HOURS PER NIGHT . GET THE SUPPLIES ON TIME, IT IS NOT TIME FOR ORDERING A NEW CPAP DEVICE. BUT NEXT TIME HE GETS THE CPAP DEVICE IT WILL BE WITH THE COMPLIANCE MONITORING CAPABILITY. (3) Nonischemic cardiomyopathy: Comment: DIAGNOSED TO HAVE NONISCHEMIC CARDIOMYOPATHY/CONGESTIVE HEART FAILURE SINCE 2021. CLINICALLY WELL CONTROLLED WITH MEDICAL THERAPY AT THIS TIME. HAS THE CARDIAC DEFIBRILLATOR IN PLACE. HE STILL HAS A FEW BOUTS OF TACHYARRHYTHMIAS, BUT MOSTLY NOT NOTICEABLE BY HIM. Code(s): I42.8 - Other cardiomyopathies Category: Medical Plan: ADVISE THAT HE SHOULD BE FOLLOWED VERY CLOSELY BY THE CARDIOLOGY SERVICE. Coding Level of Care Code Est Pt Level 3 (16096) Diagnoses Morbid obesity E66.01 Obstructive sleep apnea G47.33 Nonischemic cardiomyopathy I42.8
== END 2024-11-03 16:35 | disposition home or self-care (01) ==
PROVIDERS: PCP Physician Assistant; Visit Provider Internal Medicine
DX: E66.01 Morbid (severe) obesity due to excess calories (principal); G47.33 Obstructive sleep apnea (adult) (pediatric); I42.8 Other cardiomyopathies
CPT/HCPCS: 99213

== ENCOUNTER → 2024-11-03 15:53 | Outpatient (BNVA) | payer BC, SELFPAY | PROVIDERS: PCP Physician Assistant; Visit Provider Internal Medicine ==

== ENCOUNTER 2024-12-28 14:38 | Outpatient (AMB) | payer BC, SELFPAY ==
--- NOTE | 2024-12-28 15:06 | A.OFFVIS_ITS ---
Vital Signs 12/28/24 15:07 Height 5 ft 7.7 in Weight 306 lb 7.08 oz BMI 47.0 BP 120/82 Blood Pressure Location Lt brachial Position Sitting Pulse 76 Intake Visit Reasons: 6 mth f/up Intake Note: 6 month follow-up with ekg and [facility] Ticker Installer Required: No Tucking Machine Operator: Tucking Machine Operator Present Accompanied by: Spouse Allergies No Known Allergies Allergy (Verified 11/03/24 16:33) Medication List - Last Reconciled 12/28/24 by New Wesftall MD blood pressure monitor testing once per day As needed lisinopril 20 mg PO DAILY 90 days metoprolol succinate ER 50 mg PO DAILY rosuvastatin (Crestor) 20 mg PO DAILY 90 days sildenafil 100 mg PO DAILY PRN HPI Comments Details: Phillip comes for follow-up. No significant cardiac symptoms. Unfortunately however he continues to gain weight. He said he is not eating much. He was not able to get GLP 1 antagonist due to the cost and approval from the insurance company. He has been taking all his medications. Denies any cardiac symptoms of shortness of breath, orthopnea, PND, leg edema, abdominal distension. Denies any palpitations, lightheadedness, syncope, ICD discharge. [facility] Medical History Morbid obesity Nonischemic cardiomyopathy Heart failure with reduced ejection fraction Cardiac defibrillator in place Family History Mother CHF (congestive heart failure) Father CHF (congestive heart failure) Sister HTN (hypertension) Social History Housing: House Alcohol intake: former Year quit: 2004 Patient Tobacco Use Status: Never used Tobacco Tobacco use type: Smokeless Tobacco e-Cigarette/Vaping Use: Never Used Substance Use Type: Crack/Cocaine and Marijuana service: No Current occupational status: employed Current occupation: [employer] Current occupational exposures/hazards: No Cognitive needs: No Hearing needs: No Vision needs: No Review of Systems Const Denies chills, Denies fatigue, Denies fever(s), Denies frequent falls, Denies weakness, Denies weight gain and Denies weight loss ENT Denies dizziness Card Denies chest pain, Denies leg edema, Denies lightheadedness, Denies palpitations, Denies dyspnea, Denies dyspnea on exertion, Denies orthopnea and Denies other (loss of consciousness) Resp Denies cough, Denies dyspnea and Denies dyspnea on exertion GI Denies hematochezia and Denies change in stool character Musc Denies abnormal gait, Denies muscle weakness, Denies numbness, Denies radiating pain into limb and Denies tingling Neuro Denies abnormal gait, Denies dizziness, Denies frequent falls, Denies numbness, Denies tingling and Denies weakness Endo Denies fatigue and Denies palpitations Physical Exam Vital Signs: Last Vital Signs Pulse 76 12/28/24 15:07 BP 120/82 12/28/24 15:07 BMI result Body Mass Index 47.0 Const General: cooperative, comfortable, no acute distress, well developed, alert, awake and Physically active Nutritional Appearance: obese morbidly obese Orientation/consciousness: patient oriented x3 Limitations: no limitations HEENT Head: Yes normocephalic and Yes atraumatic Neck Neck: Yes trachea midline, Yes supple and Yes no JVD Resp Effort & Inspection: normal respiratory effort Auscultation: clear to auscultation bilaterally Cardio Jugular venous distension: no JVD Palpation: abnormal PMI displaced PMI Rate: regular rate Rhythm: regular rhythm Heart sounds: S1 normal heart sound present, S2 normal heart sound present, no click, no gallops, no murmurs and no rubs GI Auscultation: normal bowel sounds Skin General skin exam: no rashes or lesions noted Neuro General: patient oriented x3 and no focal motor deficits Extrem General: Yes no clubbing, cyanosis or edema Office Procedures Cardiac Device Check Cardiac Device Check Details: Dual-chamber [place] ICD in place. Programmed in DDD at 60 beats per minute. Atrial pacing 14% of time. Atrial capture thresholds adequate and in our capture mode. Ventricular pacing thresholds adequate. Atrial ventricular sensing is adequate. Pacing and shock lead impedance is stable. Multiple high ventricular rate episodes noted which are more suggestive of SVT. Battery life is at 6 years 54515-IC Cardiac Device Check, dual lead implantable defibrillator Procedure code (CPT) selection complete EKG Details: EKG shows normal sinus rhythm with minimal voltage criteria for LVH 02646-[id number], Complete Assessment & Plan Assessment & Plan (1) Nonischemic cardiomyopathy: Comment: DIAGNOSED TO HAVE NONISCHEMIC CARDIOMYOPATHY/CONGESTIVE HEART FAILURE SINCE 2021. CLINICALLY WELL CONTROLLED WITH MEDICAL THERAPY AT THIS TIME. HAS THE CARDIAC DEFIBRILLATOR IN PLACE. HE STILL HAS A FEW BOUTS OF TACHYARRHYTHMIAS, BUT MOSTLY NOT NOTICEABLE BY HIM. Code(s): I42.8 - Other cardiomyopathies Category: Medical Plan: Prior history of non ischemic cardiomyopathy with normalized LV ejection fraction by last echocardiogram current neurohormonal modulation with metoprolol and lisinopril therapy. Importance of neurohormonal modulation was discussed. Continue CPAP therapy. He would benefit significantly from weight reduction. Will refer him to bariatric surgery to for further management. Importance of low-salt diet was discussed. Daily weight monitoring avoidance salt loading was discussed. Advised to participate in regular physical activity. Follow-up echocardiogram in 1 year's time. (2) Cardiac defibrillator in place: Comment: [place] dual-chamber ICD in place, February 2022 Code(s): Z95.810 - Presence of automatic (implantable) cardiac defibrillator Category: Medical Plan: ICD in place for primary prevention. ICD is working well. Will follow-up every 3 months for device check and every month for heart failure. Will follow up in the clinic in 1 year's time, sooner p.r.n.. Thank you for allowing me to partake in his care Orders: Referrals Bariatric Surgery Referral E66.01 - Morbid (severe) obesity due to excess calories Coding Level of Care Code Est Pt Level 4 (60975) Complex EM visit Add On G2211 Diagnoses Nonischemic cardiomyopathy I42.[address] Z95.810 CPT Codes Cardiac Device Check - Cardiac Device 5: 31770-UK Cardiac Device Check, dual lead implantable defibrillator ([id number]) EKG - CPT: 01158-[id number], Complete ([id number])
[2024-12-28 15:07] VITALS: BP 120/82; PULSE 76; BMI 47.0
== END 2024-12-28 15:37 | disposition home or self-care (01) ==
PROVIDERS: PCP Physician Assistant; Visit Provider Internal Medicine Cardiovascular Disease
DX: I42.8 Other cardiomyopathies (principal); Z95.810 Presence of automatic (implantable) cardiac defibrillator
CPT/HCPCS: 93010; 93283; 99214

== ENCOUNTER → 2024-12-28 14:38 | Outpatient (BNVA) | payer BC, SELFPAY | PROVIDERS: PCP Physician Assistant; Visit Provider Internal Medicine Cardiovascular Disease | DX: I42.8 Other cardiomyopathies (principal); E66.01 Morbid (severe) obesity due to excess calories; Z95.810 Presence of automatic (implantable) cardiac defibrillator | CPT/HCPCS: 93005 ==

== ENCOUNTER 2025-01-20 08:06 | Outpatient (AMB) | payer BC, SELFPAY ==
--- NOTE | 2025-01-20 12:59 | A.OFFVIS_ITS ---
Intake Visit Reasons: TV [employer] P[employer] [facility] *SEE COMMENTS* Allergies No Known Allergies Allergy (Verified 01/20/25 12:59) Medication List - Last Reconciled 01/20/25 by Erik Bermudez MD blood pressure monitor testing once per day As needed lisinopril 20 mg PO DAILY 90 days metoprolol succinate ER 50 mg PO DAILY rosuvastatin (Crestor) 20 mg PO DAILY 90 days HPI HPI TV [employer] SUPER[employer] P[employer] [facility] *SEE COMMENTS*: Details: Start time:12.58pm, End time: 1.28pm ?I spent 25 minutes speaking with the patient on the phone plus an additional 5 minutes reviewing and updating records for a total of 30 minutes HPI Comments Details: Previous weight loss efforts: Self diet and exercise, high protein diet Wakes up: 5am, Sleeps: 8.30pm Breakfast: 6-7am (2 granola bars and a salad) Lunch: occasionally 12pm (fast food) Dinner: 5pm (pasta, burger with vegetables) Snacks:2-3pm (popcorn), 7-8pm (popcorn, ice cream bars) Exercise: none Beverages: Coffee: none, tea: none, soda: none, juice: rarely. ETOH: none PFSH Medical History Morbid obesity Nonischemic cardiomyopathy Heart failure with reduced ejection fraction Cardiac defibrillator in place Surgical History (Updated 01/20/25 @ 13:02 by Erik Bermudez MD) History of appendectomy H/O colonoscopy History of ankle surgery History of permanent cardiac pacemaker placement Family History Mother CHF (congestive heart failure) Father CHF (congestive heart failure) Sister HTN (hypertension) Social History Housing: House Alcohol intake: former Year quit: 2004 Patient Tobacco Use Status: Never used Tobacco Tobacco use type: Smokeless Tobacco e-Cigarette/Vaping Use: Never Used Substance Use Type: Crack/Cocaine and Marijuana service: No Current occupational status: employed Current occupation: [employer] Current occupational exposures/hazards: No Cognitive needs: No Hearing needs: No Vision needs: No Telehealth Telehealth Telehealth Platform: Telephone Location of provider rendering services: practice address Location of patient: address on file Patient Identification confirmed using: Name, : Yes Telehealth method: voice only Patient verbally consented to treatment: Yes Patient verbally consented to billing insurance company: Yes Patient informed of any privacy concerns related to visit: Yes Minutes spent on Phone/Video with Pt.: 30 Assessment & Plan Assessment & Plan (1) Morbid obesity: Comment: CURRENT BMI 46.8 HE HAS BEEN OVERWEIGHT FOR MANY YEARS. SINCE HIS LAST VISIT HE HAS PUT ON MORE WEIGHT BECAUSE HE WAS NOT VERY CAREFUL WITH HIS DIET AND EXERCISE. Code(s): E66.01 - Morbid (severe) obesity due to excess calories Category: Medical Plan: 1. We discussed in detail the available therapeutic options: 1) our lifestyle intervention program that has an average weight loss of 10% in 3 months.? 2) Weight loss medications. His insurance requires participation in a lifestyle program for 6 months before these medications can be covered. In addition, as of 09/2025 his insurance will stop cover them. 3) We also discussed about the lap sleeve gastrectomy. I emphasized the importance of close follow-up, adherence to instructions and good communication. The surgery does not replace the need to change your lifestlyle which is the cause of the obesity problem. The surgery provides the motivation to try again to change your lifestyle, it reduces the appetite and make the transition to a better lifestyle easier and doubles the amount of weight you would lose compared to doing the lifestyle change without the surgery. You will need to be on a liquid diet with protein shakes for 2 weeks before surgery to maximize weight loss and boost your nutritional status to recover better from surgery and also for the first two weeks after surgery to let the stomach heal before we introduce other foods. After the first 2 weeks we will introduce protein bars and soft foods like scrambled eggs, cottage cheese and yogurt and after the 6th week will introduce meat, fish and cooked vegetables in small amounts. Over time you should be able to eat everything in small amounts. Side effects like nausea, vomiting, heartburn or abdominal pain are not common in the practice unless you are not following in the practice. This operation requires lifetime commitment to following in our practice and communication with me. You will much less weight and experience side effects if you don?t communicate or not following in the practice. Complications are rare and in our practice is about 1/10 of the national average. The patient would like to discuss these options with his and will get back to me.
== END 2025-01-20 13:29 | disposition home or self-care (01) ==
LOC: HO.HBS 08:06
PROVIDERS: PCP Physician Assistant; Visit Provider Surgery
DX: E66.01 Morbid (severe) obesity due to excess calories (principal); E66.813 Obesity, class 3; Z68.42 Body mass index [BMI] 45.0-49.9, adult
CPT/HCPCS: 99203

== ENCOUNTER → 2025-01-20 08:06 | Outpatient (BNVA) | payer BC, SELFPAY | PROVIDERS: PCP Physician Assistant; Visit Provider Surgery ==

== ENCOUNTER 2025-07-14 14:30 | Outpatient (AMB) | payer BC, SELFPAY ==
--- NOTE | 2025-07-14 14:33 | A.OFFPC_ITS ---
Vital Signs 07/14/25 14:35 Height 5 ft 7.7 in Weight 316 lb 8 oz BMI 48.5 BP 146/78 H Blood Pressure Location Lt brachial Position Sitting Pulse 88 Pulse Source Pulse Oximeter Temp 97.5 F Temp Source Temporal Artery Scan Pulse Oximetry (%) 96 Oxygen Delivery Method Room Air Intake Visit Reasons: Annual Exam Intake Note: Patient is here today for a physical. 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 Required: No Archaeologist: Present Accompanied by: Spouse Allergies No Known Allergies Allergy (Verified 07/15/25 07:25) Medication List - Last Reconciled 07/15/25 by Tushar Soria PA-C blood pressure monitor testing once per day As needed lisinopril 20 mg PO DAILY 90 days metoprolol succinate ER 50 mg PO DAILY rosuvastatin (Crestor) 20 mg PO DAILY 90 days tirzepatide (weight loss) (Zepbound) 2.5 mg (0.5 mL) subcut QWEEK 4 weeks Tobacco use date assessed: 07/14/25 Dental Screening Dental Screen Date: 07/14/25 Did you have a dental visit in the last 12 months?: No Did you have a dental problem in the last 6 months where you did not have access to dental care?: No Was dental information given to patient?: No HPI Annual Exam HPI Details Patient is a 59-year-old male here today for an annual physical. Patient has a past medical history significant for obesity, Congestive heart failure, hypertension, history of alcohol use disorder(in remission). Heart failure with reduced ejection fraction: Has cardiac defibrillator in place. Now followed by [facility]. Patient continues on lisinopril and metoprolol with these and affect. He reports he has been off of rosuvastatin for some unclear reason. Will restart to reduce cardiovascular risk. Today blood pressure elevated in office though patient reports the severity. PLAN: Continue cardiology follow-up, goal LDL to preferably below 70. Will try to prescribe GLP 1 to help with weight reduction to help reduce his overall cardiovascular risk as he does have obesity related comorbidities such as heart failure hypertension, obstructive sleep apnea. . ... .. Obstructive sleep apnea: Patient was noted to have severe obstructive sleep apnea, during sleep he has been found to have runs of AFib. Followed by [facility] and has been started on CPAP therapy. Unfortunately he reports he still has been feeling bit tired during the daytime. .. Class 3 obesity: Unfortunately gained weight since last office visit, today's BMI at 48 Patient does understand his BMI is over 40 and has had a difficult time losing weight. He has been able to lose weight when physically active and adapting to better eating habits though does work full-time now and can not find the time to be more physically active. He does admit to dietary indiscretion. He is interested in a GLP 1 to help him lose weight. He does have several comorbidities including heart failure and MENDY Vaccines: Up-to-date with pneumonia and flu vaccine today, needs Tdap, reports he a has gotten tetanus, he is considering the shingles vaccine Colorectal cancer screening: Colonoscopy done at [facility] in 2016, normal repeat 10 years. [facility] Medical History Morbid obesity Nonischemic cardiomyopathy Heart failure with reduced ejection fraction Cardiac defibrillator in place Surgical History History of appendectomy H/O colonoscopy (~12/26/15) History of ankle surgery History of permanent cardiac pacemaker placement Family History Mother CHF (congestive heart failure) Father CHF (congestive heart failure) Sister HTN (hypertension) Social History (Updated 07/14/25 @ 14:51 by Tushar Soria PA-C) Housing: House Alcohol intake: former Year quit: 2004 Patient Tobacco Use Status: Never used Tobacco e-Cigarette/Vaping Use: Never Used Second Hand Smoke Exposure: Yes Substance Use Type: Crack/Cocaine and Marijuana service: No Current occupational status: employed Current occupation: [employer] Current occupational exposures/hazards: No Cognitive needs: No Hearing needs: No Vision needs: No Questionnaire PHQ-9 Over the last 2 weeks, how often have you been bothered by any of the following problems? 1. Little interest or pleasure in doing things: not at all 2. Feeling down, depressed, or hopeless: not at all 3. Trouble falling or staying asleep, or sleeping too much: several days 4. Feeling tired or having little energy: several days 5. Poor appetite or overeating: not at all 6. Feeling bad about yourself - or that you are a failure or have let yourself or your family down: not at all 7. Trouble concentrating on things, such as reading the newspaper or watching television: not at all 8. Moving or speaking so slowly that other people could have noticed. Or the opposite - being so fidgety or restless that you have been moving around a lot more than usual: not at all 9. Thoughts that you would be better off or of hurting yourself in some way: not at all Total score: 2 Depression Screening Interpretation: Positive Depression Screening Follow-up: Existing condition Depression Screening Done: Yes 54089 - PHQ-9 Billing: Yes Source: Developed by Drs. Sheldon Asher, Tayla Rosado, Presley Gallagher and colleagues, with an educational sawyer from [employer]. Thrive Questionnaire Date Thrive assessed: 07/14/25 I am a: Patient What is your living situation today?: I have a steady place to live Within the past 12 months, did the food you bought not last and you didn't have the money to get more?: Never true Within the past 12 months, did you worry whether your food would run out before you got money to buy more?: Never true Do you have trouble paying for medicines?: No Do you have trouble getting transportation to medical appointments?: No Do you have trouble paying your heating and electricity bill?: No Do you have trouble taking care of your child, family member or friend?: No Do you have trouble with day-to-day activities such as bathing, preparing meals, shopping, managing finances, etc.?: No Are you currently unemployed and looking for a job?: No Are you interested in more education?: No Please select the resources that you would like help with: None Currently or been in a relationship where the following occur: No concerns reported THRIVE Score: 0 AUDIT C Alcohol Use Questionnaire (AUDIT-C) 1. How often do you have a drink containing alcohol?: Never Total Score: 0 ALYSSA-7 AMB Questionnaire ALYSSA-7 Date ALYSSA - 7 assessed: 07/14/25 Feeling nervous, anxious, or on edge: 0 = Not at all Not being able to stop or control worryin = Not at all Worrying too much about different things: 0 = Not at all Trouble relaxin = Not at all Being so restless that it is hard to sit still: 0 = Not at all Becoming easily annoyed or irritable: 0 = Not at all Feeling afraid as if something awful might happen: 0 = Not at all Total ALYSSA-7 score (0-4 normal; 5-9 mild; 10-14 moderate; 15-21 severe): 0 Source: Developed by Drs. Sheldon Asher, Tayla Rosado, Presley Gallagher and colleagues, with an educational sawyer from [employer]. ALYSSA-7 Assessment Billing ALYSSA-7 Assessment Tool: ALYSSA-7 Assessment 05346 Review of Systems Const Denies body aches, Denies chills, Denies excessive sweating, Denies fatigue, Denies fever(s) and Denies headache(s) Eyes Denies blurry vision ENT Denies dysphagia, Denies vertigo, Denies dizziness, Denies headache(s), Denies hearing loss and Denies tinnitus Card Denies chest pain, Denies chest pain with activity, Denies syncope, Denies irregular heart rhythm and Denies dyspnea Resp Denies chest congestion, Denies cough, Denies hemoptysis, Denies dyspnea and Denies wheezing GI Denies abdominal pain, Denies melena, Denies hematochezia, Denies coffee ground emesis, Denies dysphagia, Denies diarrhea, Denies nausea and Denies vomiting Denies difficulty urinating, Denies dysuria, Denies urinary frequency, Denies urinary hesitancy and Denies urinary urgency Musc Denies arthralgias, Denies limited range of motion, Denies muscle cramps and Denies muscle weakness Skin/Breast Denies rash and Denies skin ulcer Neuro Denies Abnormal speech present, Denies confusion, Denies vertigo, Denies dizziness, Denies syncope, Denies headache(s), Denies memory loss and Denies seizure-like activity Psych Denies anxiety, Denies confusion, Denies depression, Denies memory loss, Denies panic attacks and Denies paranoia Endo Denies excessive sweating, Denies fatigue, Denies flushing, Denies polydipsia and Denies polyuria Aller/Immun Denies wheezing Physical exam (Primary Care) Vital Signs: Last Vital Signs Temp 97.5 F 07/14/25 14:35 Pulse 88 07/14/25 14:35 BP 146/78 H 07/14/25 14:35 Pulse Ox 96 07/14/25 14:35 Oxygen Delivery Method Room Air 07/14/25 14:35 BMI result Body Mass Index 48.5 BMI Assessment/Plan discussion: High BMI High, discussed plan: lifestyle, weight reduction, dietary and physical activity Tobacco/Smoking Status: Tobacco use Status Tobacco use date assessed 07/14/25 07/14/25 14:41 Patient Tobacco Use Status Never used Tobacco 07/14/25 14:51 Tobacco use type 07/14/25 14:41 e-Cigarette/Vaping Use Never Used 07/14/25 14:51 PHQ-9: PHQ-9 Score PHQ-9: Total score 2 07/14/25 15:13 Depression Screening Interpretation: Positive Depression Screening Follow-up: Existing condition Thrive Assessment: Date of Thrive Assessment Date Thrive assessed 07/14/25 07/14/25 14:41 Currently or been in a relationship where the following occur: No concerns reported Const Other: Morbidly obese General: cooperative, comfortable, no acute distress, alert and awake; No confusion Orientation/consciousness: oriented to person, oriented to place, patient oriented x3 and No confusion HENMT Head: Yes normocephalic Ears: external ears normal and TM's normal bilaterally Face and sinus: No sinus tenderness Mouth: Normal oral and palatal mucosa present and tongue normal Teeth and gingiva: dentition normal and gingiva normal Throat: Yes posterior oropharynx normal, Yes tonsils normal and Yes uvula midline Eyes Conjunctivae: conjunctivae normal Sclerae: sclerae normal Pupils: Equal, round and reactive pupils present EOM: EOMs intact bilaterally Direct Ophthalmoscopy: No no photophobia Neck Neck: Yes no lymphadenopathy, No tender and Yes no JVD Thyroid: Thyroid normal Carotids: no bruits Chest Chest palpation & inspection: no tenderness Resp Effort & Inspection: normal respiratory effort, no audible wheezes, not labored and no stridor Auscultation: no crackles, no rales, no rhonchi and no wheezes Cardio Jugular venous distension: no JVD Rate: regular rate, not bradycardic and not tachycardic Rhythm: regular rhythm Bruits: no carotid bruits Peripheral pulses: Peripheral pulses 2+ throughout GI Inspection: Yes normal to inspection, No abdominal wall ecchymosis and No visible herniation Palpation (GI): Soft to palpation, nontender, no guarding, not rigid and No hepatosplenomegaly present Auscultation: normoactive bowel sounds General: Yes no CVA tenderness Back/Spine/Pelvis Back: no CVA tenderness and No back tenderness Cervical Spine: cervical ROM normal Thoracic/Lumbar Spine: thoracic and lumbar spine normal to inspection, straight leg raise negative bilaterally, No thoraco-lumbar ROM limited and No lumbar spinal tenderness Skin Lesions: no lesions Rashes: no rashes Wounds: no wounds Neuro General: oriented to person, oriented to place, patient oriented x3, CN's II-XI intact bilaterally and No confusion Cranial nerves: Yes Equal, round and reactive pupils present and Yes Normal accommodation reflex present Cognition (Neuro): normal cognition Speech: No Abnormal speech present Gait exam (Neuro): Normal gait present Motor exam (neuro): 5/5 motor strength present throughout Extrem Right upper extremity: full ROM; no cyanosis Left upper extremity: full ROM; no cyanosis Right lower extremity: no edema Left lower extremity: no edema Psych Appearance: grossly normal Mental Status: mental status grossly normal Affect: normal affect Attitude: cooperative Thought process: Normal thought process present Office Procedures Flu Questionnaire Does the patient have a severe egg allergy?: No Does the patient have severe life threatening allergies?: No Does the patient have a fever or illness today?: No Has the patient ever had Guillain-[place] Syndrome?: No Has the patient ever had any past reaction to a flu shot?: No Immunizations Fluarix [id number] (PF) 45 mcg (15 mcg x 3)/0.5 mL IM syringe Performing Provider: Tushar Soria PA-C [facility] Administered by: Albina Pastrana CMA on 07/14/25 15:14 Dose Route Admin Location Dispensed Lot Number Expiration Date NDC Licensed Retail Supervisor 0.5 mL IM Left Deltoid 0.5 mL [id number] 03/29/26 [id number] [employer] VIS Given Date VIS Provided VIS Publication Date 07/14/25 Single Vaccine 24 Eligibility Eligibility Date Funding Source Not [facility] Eligible 07/14/25 Private Boostrix Tdap 2.5 Lf unit-8 mcg-5 Lf/0.5 mL intramuscular syringe Performing Provider: Tushar Soria PA-C Performing Location: [facility] Administered by: Albina Pastrana CMA on 07/14/25 15:14 Dose Route Admin Location Dispensed Lot Number Expiration Date NDC Licensed Retail Supervisor 0.5 mL IM Left Deltoid 0.5 mL [id number] 07/23/27 07288-993-75 [employer] Total Dispensed Waste 0.5 mL 0 % VIS Given Date VIS Provided VIS Publication Date 07/14/25 Single Vaccine 21 Eligibility Eligibility Date Funding Source Not [facility] Eligible 07/14/25 Private Coding Level of Care Code Est Pt Prev Care 40-64y([id number]) Diagnoses Annual physical exam Z00.00 Heart failure with reduced ejection fraction I50.20 Obstructive sleep apnea G47.33 Primary hypertension I10 Hypertension type: primary hypertension Mixed hyperlipidemia E78.2 Hyperlipidemia type: mixed hyperlipidemia Colon cancer screening Z12.11 Class 3 obesity E66.[address] Z95.810 Additional Codes PHQ-9 - 77038 - PHQ-9 Billing: Yes ([id number]) ALYSSA-7 Assessment Billing - ALYSSA-7 Assessment Tool: ALYSSA-7 Assessment 32269 ([id number]) Assessment & Plan Assessment & Plan (1) Annual physical exam: Code(s): Z00.00 - Encounter for general adult medical examination without abnormal findings Category: Medical Plan: As per HPI (2) Heart failure with reduced ejection fraction: Comment: Diagnose October 2021 Code(s): I50.20 - Unspecified systolic (congestive) heart failure Category: Medical Plan: Patient continues to follow cardiology on an annual basis. Does have a pacemaker in place. Continues with metoprolol and lisinopril with decent affect. Unfortunately blood pressure slightly elevated today in office though patient does not regularly monitor his blood pressure. Has gained weight since last office visit and does understand this is likely due to dietary indiscretion. Will try GLP 1 to help reduce appetite lose weight and reduce his cardiovascular risk. (3) Obstructive sleep apnea: Comment: DIAGNOSIS OF MENDY WAS CONFIRMED AND IT IS RATHER SEVERE, HE HAD NO INSURANCE SO WE HAD MADE ARRANGEMENT FOR HIM TO ACQUIRE A USED CPAP DEVICE, WHICH WAS VERY FUNCTIONAL. AND WORKING WELL HE HAS BEEN USING IT REGULARLY EVERY NIGHT AND SLEEPS MORE THAN 6 HOURS PER NIGHT. THE MACHINE BEING OLD DOES NOT TRANSMIT THE DATA FOR RECORDING COMPLIANCE, Code(s): G47.33 - Obstructive sleep apnea (adult) (pediatric) Category: Medical Plan: Continues to follow [facility]. Does use a CPAP machine on a nightly basis with good effect on his sleep. Again will start GLP 1 Zepbound which is indicated for obstructive sleep apnea. (4) HTN (hypertension): Code(s): I10 - Essential (primary) hypertension Category: Medical Qualifiers: Hypertension type: primary hypertension Qualified Code(s): I10 - Essential (primary) hypertension Plan: Patient's blood pressure slightly elevated today in office. We did consider increasing lisinopril though patient will like to work on weight reduction reform up titrating medication at this time. He will work on low-sodium diet. Goal blood pressures to be below 140/90 (5) Hyperlipidemia: Code(s): E78.5 - Hyperlipidemia, unspecified Category: Medical Qualifiers: Hyperlipidemia type: mixed hyperlipidemia Qualified Code(s): E78.2 - Mixed hyperlipidemia Plan: Patient has not been taking his Crestor as he has likely not been getting refills from the pharmacy. Will refill Crestor to restart this medication to reduce his cardiovascular risk. Goal LDL is to be optimally below 70 (6) Colon cancer screening: Code(s): Z12.11 - Encounter for screening for malignant neoplasm of colon Category: Medical Plan: Patient is due for screening colonoscopy in 2025, will refer to Gastroenterology to start the process. (7) Class 3 obesity: Code(s): E66.813 - Obesity, class 3 Category: Medical Plan: Patient does understand his BMI is over 40 and will work on being more physically active and adapt to better eating habits to reduce his weight. Again he is willing to try a GLP 1 to help him lose weight. Thus will start Zepbound which is indicated for obstructive sleep apnea which he also does have has a comorbidity. (8) Cardiac defibrillator in place: Comment: [place] dual-chamber ICD in place, February 2022 Code(s): Z95.810 - Presence of automatic (implantable) cardiac defibrillator Category: Medical Plan: Continues to follow cardiology. Does have a [place] ICD in place Orders: Orders Complete Blood Count no Diff 07/14/25 I50.20 - Unspecified systolic (congestive) heart failure Prostate Specific Antigen Scr 07/14/25 R73.09 - Other abnormal glucose, Z12.5 - Encounter for screening for malignant neoplasm of prostate Influenza [id number] Immunization 07/14/25 Z23 - Encounter for immunization Lipid Panel 07/14/25 E78.2 - Mixed hyperlipidemia Comprehensive [place]. Panel Fast 07/14/25 I50.20 - Unspecified systolic (congestive) heart failure Hemoglobin A1c 07/14/25 R73.09 - Other abnormal glucose TDaP Immunization 07/14/25 Z23 - Encounter for immunization Referrals Gastroenterology Referral Z12.11 - Encounter for screening for malignant neoplasm of colon Medications: New tirzepatide (weight loss) (Zepbound) for 4 weeks 2.5 mg (0.5 mL) subcut QWEEK 2 mL 1RF 4 weeks E66.813 - Obesity, class 3, G47.33 - Obstructive sleep apnea (adult) (pediatric), I50.20 - Unspecified systolic (congestive) heart failure tirzepatide (weight loss) (Zepbound) for 4 weeks 2.5 mg (0.5 mL) subcut QWEEK 2 mL 1RF 4 weeks E66.813 - Obesity, class 3, G47.33 - Obstructive sleep apnea (adult) (pediatric), I50.20 - Unspecified systolic (congestive) heart failure Refilled rosuvastatin (Crestor) 20 mg PO DAILY 90 tabs 1RF 90 days I50.32 - Chronic diastolic (congestive) heart failure Patient Instructions: Goal: Blood pressure to be below 140/90, LDL to be below 70 Barriers: Adherence to physical activity and healthy eating habits
[2025-07-14 14:35] VITALS: BP 146/78; PULSE 88; TEMP 36.4; O2SAT 96; BMI 48.5
== END 2025-07-14 15:17 | disposition home or self-care (01) ==
LOC: HO.HMCH 14:31
PROVIDERS: PCP Physician Assistant; Visit Provider Physician Assistant
DX: Z23 Encounter for immunization (principal)

== ENCOUNTER → 2025-07-14 14:30 | Outpatient (BNVA) | payer BC, SELFPAY | PROVIDERS: PCP Physician Assistant; Visit Provider Physician Assistant | DX: Z00.00 Encounter for general adult medical examination without abnormal findings (principal); I11.0 Hypertensive heart disease with heart failure; I50.9 Heart failure, unspecified; G47.30 Sleep apnea, unspecified; E66.813 Obesity, class 3; E78.2 Mixed hyperlipidemia; Z23 Encounter for immunization; Z95.810 Presence of automatic (implantable) cardiac defibrillator; Z99.89 Dependence on other enabling machines and devices; Z68.42 Body mass index [BMI] 45.0-49.9, adult | CPT/HCPCS: 90471; 90472; 90656; 90715; 96127 ==

== ENCOUNTER → 2025-07-20 23:59 | Outpatient (BNV) | payer BC, SELFPAY ==
--- NOTE | 2025-07-23 12:24 | MHC.OFFVIS ---
Intake Visit Reasons: Remote ICD check- [place] Allergies No Known Allergies Allergy (Verified 07/15/25 07:25) [facility] Medical History Morbid obesity Nonischemic cardiomyopathy Heart failure with reduced ejection fraction Cardiac defibrillator in place Surgical History History of appendectomy H/O colonoscopy (~12/26/15) History of ankle surgery History of permanent cardiac pacemaker placement Family History Mother CHF (congestive heart failure) Father CHF (congestive heart failure) Sister HTN (hypertension) Social History (Updated 07/14/25 @ 14:51 by Tushar Soria PA-C) Housing: House Alcohol intake: former Year quit: 2004 Patient Tobacco Use Status: Never used Tobacco e-Cigarette/Vaping Use: Never Used Second Hand Smoke Exposure: Yes Substance Use Type: Crack/Cocaine and Marijuana service: No Current occupational status: employed Current occupation: [employer] Current occupational exposures/hazards: No Cognitive needs: No Hearing needs: No Vision needs: No Office Procedures Cardiac Device Check Cardiac Device Check Details: Remote ICD report generated 07/20/2025. ICD function is adequate [id number] Cardiac Interrogation, implant defibrillator w/interim Procedure code (CPT) selection complete Assessment & Plan Assessment & Plan (1) Cardiac defibrillator in place: Comment: [place] dual-chamber ICD in place, February 2022 Code(s): Z95.810 - Presence of automatic (implantable) cardiac defibrillator Category: Medical Plan: See above Coding Level of Care Code Procedure Only Diagnoses Cardiac defibrillator in place Z95.810 CPT Codes Cardiac Device Check - Cardiac Device 13: [id number] Cardiac Interrogation, implant defibrillator w/interim ([id number])
== END ==
PROVIDERS: PCP Physician Assistant; Visit Provider Internal Medicine Cardiovascular Disease
DX: Z45.02 Encounter for adjustment and management of automatic implantable cardiac defibrillator (principal)
CPT/HCPCS: 93295

== ENCOUNTER 2025-08-20 08:27 | Outpatient (REF) | payer BC, SELFPAY ==
[2025-08-20 09:20] LABS: Hematocrit 49.6 % (42.0-52.0); Hemoglobin 16.3 g/dl (14.0-18.0); Mean Corpuscular HGB Conc 32.9 g/dl (31.0-36.0); Mean Corpuscular Hemoglobin 29.3 pg (27.0-33.0); Mean Corpuscular Volume 89.0 fL (80.0-98.0); NRBC Abs Auto 0.000 X10*3/uL (0.0-0.012); NRBC Pct Auto 0.0 /100WBC (0.0-0.2); Platelet Count 253 X10*3/uL (160-400); Red Blood Count 5.57 X10*6/uL (4.60-5.80); White Blood Count 9.5 X10*3/uL (4.8-10.8)
[2025-08-20 09:50] LABS: Alanine Aminotransferase 59 U/L (0-40); Albumin Level 4.2 g/dL (3.5-5.0); Alkaline Phosphatase 81 U/L (39-117); Anion Gap 11 (12-20); Aspartate Amino Transferase 44 U/L (5-37); Blood Urea Nitrogen 17 mg/dL (9-16); Calcium 8.9 mg/dL (8.4-10.2); Carbon Dioxide 23 mmol/L (22-29); Chloride 111 mmol/L (96-108); Cholesterol 139 mg/dL (<200); Estimated Glomerular Filt Rate > 60; HDL Cholesterol 41 mg/dL (>40); Potassium 4.0 mmol/L (3.3-5.1); Sodium 141 mmol/L (135-145); Total Protein 6.7 g/dL (6.5-8.0); Triglycerides 68 mg/dL (<150)
== END 2025-08-20 08:28 | disposition home or self-care (01) ==
LOC: HO.LAB 08:27
PROVIDERS: PCP Physician Assistant; Visit Provider Physician Assistant
DX: Z12.5 Encounter for screening for malignant neoplasm of prostate (principal); I50.20 Unspecified systolic (congestive) heart failure; E78.2 Mixed hyperlipidemia; R73.09 Other abnormal glucose
CPT/HCPCS: 36415; 80053; 80061; 83036; 84153; 85027